=== PATIENT | male | born 1960 | race Caucasian/White ===

== ENCOUNTER 2017-08-21 05:19 | Observation (INO) | payer MEDICARE ==
[2017-08-21] MEDS ORDERED: SODIUM CHLORIDE 0.9% 500 ML IV STA (05:39)
[2017-08-21 05:55] LABS: Basophils # (A) 0.1 k/uL (0-0.2); Basophils % (A) 1 %; CH 30.5; CHCM 34.1; Eosinophils # (A) 0.3 k/uL (0-0.7); Eosinophils % (A) 3 %; HCT 45.2 % (39.0-53.0); HDW 2.74; HGB 15.2 gm/dL (13.0-17.5); Luc # (Auto) 0.23; Luc % (Auto) 2; Lymphocytes # (A) 4.5 k/uL (1.0-4.8); Lymphocytes % (A) 43 %; MCH 30.1 pg (25.0-35.0); MCHC 33.5 g/dL (31.0-37.0); Mean Platelet Volume 6.5; Monocytes # (A) 0.8 k/uL (0-1.0); Monocytes % (A) 7 %; Neutrophils # (A) 4.6 k/uL (1.3-7.7); Neutrophils % (A) 44 %; RBC 5.03 m/uL (4.30-5.90); RDW 13.6 % (11.5-15.5); WBC 10.6 k/uL (3.8-10.6); WBC (Perox) 10.31
[2017-08-21 06:15] LABS: ALT 28 U/L (21-72); AST 18 U/L (17-59); Alkaline Phosphatase 125 U/L (38-126); Anion Gap 12 mmol/L; Blood Urea Nitrogen 17 mg/dL (9-20); Calcium 9.3 mg/dL (8.4-10.2); Carbon Dioxide 22 mmol/L (22-30); Chloride 107 mmol/L (98-107); Glucose 158 mg/dL (74-99); Magnesium 2.1 mg/dL (1.6-2.3); Non-African American GFR(MDRD) >60 (>60 ml/min/1.73 sqM); Potassium 3.8 mmol/L (3.5-5.1); Sodium 141 mmol/L (137-145); Total Bilirubin 0.1 mg/dL (0.2-1.3); Total Protein 6.7 g/dL (6.3-8.2)
[2017-08-21 06:22] LABS: Creatine Kinase 33 U/L (55-170)
--- NOTE | 2017-08-21 06:26 | ED ---
General Adult HPI - General Chief complaint: Nausea/Vomiting/Diarrhea Stated complaint: chest pain Time Seen by Provider: 08/21/17 05:40 Source: patient Mode of arrival: ambulatory Limitations: no limitations - History of Present Illness Initial comments: This patient is a 56-year-old man who presents to be evaluated for a constellation of symptoms. Patient states that he was awakened from sleep perhaps an hour ago, with a feeling of palpitations, dizziness, sour brash. Onset/Timin -: hour(s) Location: abdomen Consistency: now resolved Improves with: none Worsens with: none Associated Symptoms: fever/chills, nausea/vomiting, shortness of breath, weakness - Related Data Allergies Allergy/AdvReac Type Severity Reaction Status Date / Time No Known Allergies Allergy Verified 08/21/17 05:28 Review of Systems ROS Statement: Those systems with pertinent positive or pertinent negative responses have been documented in the HPI. ROS Other: All systems not noted in ROS Statement are negative. Constitutional: Reports: chills. Denies: fever Respiratory: Reports: dyspnea. Denies: cough, wheezes Cardiovascular: Reports: palpitations Gastrointestinal: Reports: nausea. Denies: abdominal pain, vomiting Skin: Denies: rash Neurological: Denies: headache, weakness Psychiatric: Reports: anxiety Past Medical History Past Medical History: No Reported History History of Any Multi-Drug Resistant Organisms: MRSA Additional Past Surgical History / Comment(s): sleep apnea surgery Past Psychological History: Depression Smoking Status: Former smoker Past Alcohol Use History: None Reported Past Drug Use History: Marijuana General Exam Limitations: no limitations General appearance: alert, anxious, obese Head exam: Present: atraumatic Eye exam: Present: normal appearance. Absent: scleral icterus, conjunctival injection ENT exam: Present: mucous membranes dry Neck exam: Present: normal inspection Respiratory exam: Present: normal lung sounds bilaterally. Absent: respiratory distress, wheezes, rales, rhonchi, stridor Cardiovascular Exam: Present: regular rate (Rate is 88 at my exam), normal rhythm, normal heart sounds. Absent: systolic murmur, diastolic murmur, rubs, gallop GI/Abdominal exam: Present: soft. Absent: distended, tenderness, guarding, rebound, mass Extremities exam: Present: normal inspection, normal capillary refill. Absent: pedal edema, calf tenderness Back exam: Present: normal inspection. Absent: CVA tenderness (R), CVA tenderness (L) Neurological exam: Present: alert Skin exam: Present: warm, dry, intact, normal color. Absent: rash Course Vital Signs 08/21/17 08/21/17 08/21/17 05:23 07:10 09:08 Temperature 97.5 F L Pulse Rate 133 H 112 H Respiratory 18 22 18 Rate Blood Pressure 155/98 149/89 O2 Sat by Pulse 97 Oximetry 08/21/17 09:14 Temperature Pulse Rate 111 H Respiratory 20 Rate Blood Pressure 142/68 O2 Sat by Pulse 97 Oximetry EKG Findings - EKG Comments: EKG Findings:: Low voltage QRS complex - EKG Results: EKG: interpreted by ERMD, sinus rhythm (With PVC), normal axis, normal ST/T EKG shows: tachycardia (Rate approximately 117 bpm) Medical Decision Making - Lab Data Result diagrams: 08/21/17 05:30 08/21/17 05:30 Lab Results 08/21/17 08/21/17 08/21/17 Range/Units 05:30 05:30 05:30 WBC 10.6 (3.8-10.6) k/uL RBC 5.03 (4.30-5.90) m/uL Hgb 15.2 (13.0-17.5) gm/dL Hct 45.2 (39.0-53.0) % MCV 90.0 (80.0-100.0) fL MCH 30.1 (25.0-35.0) pg MCHC 33.5 (31.0-37.0) g/dL RDW 13.6 (11.5-15.5) % Plt Count 320 (150-450) k/uL Neutrophils % 44 % Lymphocytes % 43 % Monocytes % 7 % Eosinophils % 3 % Basophils % 1 % Neutrophils # 4.6 (1.3-7.7) k/uL Lymphocytes # 4.5 (1.0-4.8) k/uL Monocytes # 0.8 (0-1.0) k/uL Eosinophils # 0.3 (0-0.7) k/uL Basophils # 0.1 (0-0.2) k/uL PT (9.0-12.0) sec INR (<1.2) APTT (22.0-30.0) sec D-Dimer (<0.60) mg/L FEU Sodium 141 (137-145) mmol/L Potassium 3.8 (3.5-5.1) mmol/L Chloride 107 (98-107) mmol/L Carbon Dioxide 22 (22-30) mmol/L Anion Gap 12 mmol/L BUN 17 (9-20) mg/dL Creatinine 0.90 (0.66-1.25) mg/dL Est GFR (MDRD) Af Amer >60 (>60 ml/min/1.73 sqM) Est GFR (MDRD) Non-Af >60 (>60 ml/min/1.73 sqM) Glucose 158 H (74-99) mg/dL Calcium 9.3 (8.4-10.2) mg/dL Magnesium 2.1 (1.6-2.3) mg/dL Total Bilirubin 0.1 L (0.2-1.3) mg/dL AST 18 (17-59) U/L ALT 28 (21-72) U/L Alkaline Phosphatase 125 (38-126) U/L Total Creatine Kinase 33 L (55-170) U/L CK-MB (CK-2) <0.2 (0.0-2.4) ng/mL CK-MB (CK-2) Rel Index Troponin I <0.012 (0.000-0.034) ng/mL Total Protein 6.7 (6.3-8.2) g/dL Albumin 4.1 (3.5-5.0) g/dL TSH 13.700 H (0.465-4.680) mIU/L 08/21/17 Range/Units 05:30 WBC (3.8-10.6) k/uL RBC (4.30-5.90) m/uL Hgb (13.0-17.5) gm/dL Hct (39.0-53.0) % MCV (80.0-100.0) fL MCH (25.0-35.0) pg MCHC (31.0-37.0) g/dL RDW (11.5-15.5) % Plt Count (150-450) k/uL Neutrophils % % Lymphocytes % % Monocytes % % Eosinophils % % Basophils % % Neutrophils # (1.3-7.7) k/uL Lymphocytes # (1.0-4.8) k/uL Monocytes # (0-1.0) k/uL Eosinophils # (0-0.7) k/uL Basophils # (0-0.2) k/uL PT 9.8 (9.0-12.0) sec INR 1.0 (<1.2) APTT 23.5 (22.0-30.0) sec D-Dimer 0.27 (<0.60) mg/L FEU Sodium (137-145) mmol/L Potassium (3.5-5.1) mmol/L Chloride (98-107) mmol/L Carbon Dioxide (22-30) mmol/L Anion Gap mmol/L BUN (9-20) mg/dL Creatinine (0.66-1.25) mg/dL Est GFR (MDRD) Af Amer (>60 ml/min/1.73 sqM) Est GFR (MDRD) Non-Af (>60 ml/min/1.73 sqM) Glucose (74-99) mg/dL Calcium (8.4-10.2) mg/dL Magnesium (1.6-2.3) mg/dL Total Bilirubin (0.2-1.3) mg/dL AST (17-59) U/L ALT (21-72) U/L Alkaline Phosphatase (38-126) U/L Total Creatine Kinase (55-170) U/L CK-MB (CK-2) (0.0-2.4) ng/mL CK-MB (CK-2) Rel Index Troponin I (0.000-0.034) ng/mL Total Protein (6.3-8.2) g/dL Albumin (3.5-5.0) g/dL TSH (0.465-4.680) mIU/L Disposition Clinical Impression: Chest pain, Hypothyroid Disposition: ADMITTED IP TO THIS HOSP Condition: Fair Referrals: Juan Simms MD [Primary Care Provider] - 1-2 days
[2017-08-21 06:27] LABS: Partial Thromboplastin Time 23.5 sec (22.0-30.0); Prothrombin Time 9.8 sec (9.0-12.0)
[2017-08-21 06:35] LABS: Creatine Kinase MB <0.2 ng/mL (0.0-2.4); Troponin I <0.012 ng/mL (0.000-0.034)
--- NOTE | 2017-08-21 06:57 | XR ---
EXAM: XR Chest, 1 View CLINICAL HISTORY: Reason: dysrhythmia TECHNIQUE: Frontal view of the chest. COMPARISON: No relevant prior studies available. FINDINGS: Lungs: Wedge-shaped left ventricular border in a is nonspecific, may suggest prominent pericardial fat versus cyst. Right lungs clear Pleural space: Unremarkable. No pneumothorax. Mediastinum: Unremarkable. Bones/joints: See above. IMPRESSION: Wedge-shaped left ventricular border in a is nonspecific, may suggest prominent pericardial fat versus cyst. Airspace disease is less likely but cannot be entirely excluded.
[2017-08-21] MEDS ORDERED: NITROGLYCERIN SL TABS 0.4 MG TAB SUBLINGUAL STA (08:59)
[2017-08-21] MEDS ORDERED: LORazepam 2 MG/ML INJ IV STA (09:20)
[2017-08-21] MEDS ORDERED: NITROGLYCERIN SL TABS 0.4 MG TAB SUBLINGUAL PRN (09:47)
[2017-08-21 11:55] VITALS: BMI 38.5
[2017-08-21 12:01] LABS: Creatine Kinase 36 U/L (55-170)
[2017-08-21 12:13] LABS: Creatine Kinase MB 0.4 ng/mL (0.0-2.4); Troponin I <0.012 ng/mL (0.000-0.034)
--- NOTE | 2017-08-21 12:22 | P.HPIM ---
History of Present Illness H&P Date: 08/21/17 Chief Complaint: Palpitations and shortness of breath Nito is a 56-year-old white male well-known to me. He is to see in the office several days ago regarding anxiety and depression. He has known significant anxiety. He states that last night he woke up short of breath and with palpitations in his chest, and feeling diaphoretic. He said the episode lasted 15-20 minutes and then recurred. He came emergency room to be seen and evaluated for these symptoms. He is now resting comfortably on the observation floor. Initial tests are negative him with the exception of a TSH of 13.7, and a glucose of 158, which may have been fasting. Review of Systems All systems: negative Past Medical History Past Medical History: Chest Pain / Angina, GERD/Reflux, Sleep Apnea/CPAP/BIPAP, Thyroid Disorder Additional Past Medical History / Comment(s): cataract History of Any Multi-Drug Resistant Organisms: MRSA Date of last positivie culture/infection: unk MDRO Source:: butt Additional Past Surgical History / Comment(s): sleep apnea surgery Past Anesthesia/Blood Transfusion Reactions: No Reported Reaction Past Psychological History: Depression Smoking Status: Former smoker Past Alcohol Use History: None Reported Past Drug Use History: Marijuana - Past Family History Sister(s) Family Medical History: Cancer Additional Family Medical History / Comment(s): depression, breast CA Father Additional Family Medical History / Comment(s): blood clot Mother Family Medical History: Cancer Additional Family Medical History / Comment(s): pancreatic cancer Medications and Allergies Home Medications Medication Instructions Recorded Confirmed Type Escitalopram [Lexapro] 10 mg PO DAILY 08/21/17 08/21/17 History Allergies Allergy/AdvReac Type Severity Reaction Status Date / Time No Known Allergies Allergy Verified 08/21/17 10:23 Physical Exam Vitals: Vital Signs Temp Pulse Resp BP Pulse Ox 08/21/17 10:45 98.6 F 76 20 109/56 96 08/21/17 09:14 111 H 20 142/68 97 08/21/17 09:08 112 H 18 149/89 97 08/21/17 07:10 22 08/21/17 05:23 97.5 F L 133 H 18 155/98 Intake and Output 10/21/17 10/22/17 10/22/17 22:59 06:59 14:59 Other: Weight 114.759 kg 114.759 kg Patient Weight 08/22/17 06:59 Weight 114.759 kg GENERAL: Well-appearing, well-nourished and in no acute distress. HEAD: Atraumatic, normocephalic. EYES: Pupils equal round and reactive to light, extraocular movements intact, sclera anicteric, conjunctiva are normal. ENT:nares patent, oropharynx clear without exudates. Moist mucous membranes. NECK: Normal range of motion, supple without lymphadenopathy or JVD, no thyromegaly LUNGS: Breath sounds clear to auscultation bilaterally and equal. No wheezes rales or rhonchi. HEART: Regular rate and rhythm without murmurs, rubs or gallops.S1S2 Normal ABDOMEN: Soft, nontender, normoactive bowel sounds. No guarding, no rebound. No masses appreciated. EXTREMITIES: Normal range of motion, no pitting or edema. No clubbing or cyanosis. NEUROLOGICAL: Cranial nerves II through XII grossly intact. Normal speech, normal gait. PSYCH: Normal mood, normal affect. SKIN: Warm, Dry, normal turgor, no rashes or lesions noted. Results CBC & Chem 7: 08/21/17 05:30 08/21/17 05:30 Labs: Abnormal Lab Results - Last 24 Hours (Table) 08/21/17 08/21/17 08/21/17 Range/Units 05:30 05:30 11:20 Glucose 158 H (74-99) mg/dL Total Bilirubin 0.1 L (0.2-1.3) mg/dL Total Creatine Kinase 33 L 36 L (55-170) U/L TSH 13.700 H (0.465-4.680) mIU/L Thrombosis Risk Factor Assmnt - DVT/VTE Prophylaxis DVT/VTE Prophylaxis: Low risk, early ambulation encouraged - Choose All That Apply Any of the Below Risk Factors Present?: Yes Each Factor Represents 1 point: Age 41-60 years, Obesity (BMI >25) Thrombosis Risk Factor Assessment Total Risk Factor Score: 2 Thrombosis Risk Factor Assessment Level: Low Risk Assessment and Plan Plan: Chest pain, possibly unstable angina: We'll consult cardiology, most likely with Cardiolite stress test and a 2-D echo in the next 24 hours. Palpitations: We'll await further tests being worked up for possible angina. Abnormal thyroid function tests: I'll obtain a free T4, antiTPO Ab to confirm Brian's thyroiditis, plan on starting him on Synthroid 50 g daily this time. Elevated fasting glucose: We'll obtain hemoglobin A1c, Accu-Cheks before meals and at bedtime and Humalog scale Utilize anxiety disorder: We'll order Xanax 0.25 every 6 hours when necessary for symptoms. Depression: He can continue on his escitalopram, which was just restarted 2 days ago I'll await cardiology recommendations, his upcoming laboratory studies, and he' ll be reevaluated next 24 hours
[2017-08-21 17:11] LABS: Glucose,Whole Blood 108 mg/dL (75-99)
[2017-08-21] MEDS: ONDANSETRON 4 MG/2 ML VIAL IVP PRN (17:13)
[2017-08-21] MEDS: ALPRAZolam 0.25 MG TAB PO PRN (17:13)
[2017-08-21 18:32] LABS: Creatine Kinase MB 0.4 ng/mL (0.0-2.4); Troponin I <0.012 ng/mL (0.000-0.034)
[2017-08-21 18:34] LABS: Creatine Kinase 35 U/L (55-170)
[2017-08-21] MEDS: METOPROLOL TARTRATE 25 MG TAB PO SCH (20:20)
[2017-08-21 20:29] LABS: Glucose,Whole Blood 98 mg/dL (75-99)
[2017-08-21 22:02] LABS: Hemoglobin A1C 5.6 % (4.2-6.1)
[2017-08-22] MEDS: LEVOTHYROXINE 50 MCG TAB PO SCH (06:12)
[2017-08-22 07:00] LABS: Glucose,Whole Blood 100 mg/dL (75-99)
[2017-08-22 07:02] LABS: Basophils # (A) 0.1 k/uL (0-0.2); Basophils % (A) 1 %; CH 30.1; CHCM 33.1; Eosinophils # (A) 0.2 k/uL (0-0.7); Eosinophils % (A) 2 %; HCT 43.5 % (39.0-53.0); HDW 2.68; HGB 14.3 gm/dL (13.0-17.5); Luc # (Auto) 0.15; Luc % (Auto) 2; Lymphocytes # (A) 2.8 k/uL (1.0-4.8); Lymphocytes % (A) 35 %; MCH 30.1 pg (25.0-35.0); MCHC 32.9 g/dL (31.0-37.0); MCV 91.3 fL (80.0-100.0); Mean Platelet Volume 6.4; Monocytes # (A) 0.5 k/uL (0-1.0); Monocytes % (A) 7 %; Neutrophils # (A) 4.4 k/uL (1.3-7.7); Neutrophils % (A) 54 %; RBC 4.77 m/uL (4.30-5.90); RDW 13.7 % (11.5-15.5); WBC 8.2 k/uL (3.8-10.6); WBC (Perox) 8.16
[2017-08-22 07:41] LABS: Anion Gap 8 mmol/L; Blood Urea Nitrogen 13 mg/dL (9-20); Calcium 8.9 mg/dL (8.4-10.2); Carbon Dioxide 26 mmol/L (22-30); Chloride 107 mmol/L (98-107); Cholesterol 158 mg/dL (<200); Glucose 104 mg/dL (74-99); HDL Cholesterol 43 mg/dL (40-60); Non-African American GFR(MDRD) >60 (>60 ml/min/1.73 sqM); Potassium 4.3 mmol/L (3.5-5.1); Sodium 141 mmol/L (137-145)
[2017-08-22] MEDS: ASPIRIN 325 MG TAB PO SCH (08:52)
[2017-08-22] MEDS ORDERED: ESCITALOPRAM 10 MG TAB PO SCH (09:00)
--- NOTE | 2017-08-22 10:31 | P.CRDCN ---
History of Present Illness Consult date: 08/22/17 History of present illness: This is a 56-year-old pleasant male. Past medical history significant for depression, anxiety, sleep apnea and former smoker. Patient states yesterday morning he woke up and he felt as if someone had druggeed him. He states he felt all over generalized malaise and weakness. He felt foggy and was unable to articulate. We have been asked to see the patient for complaints of chest pain although the patient denies ever having any chest pain during this episode. He does however state that during this episode he started becoming very anxious and worked up and his heart started racing and he became short of breath. He states he has had similar type feelings in the past when he is in a stressful event. EKG upon arrival shows a sinus mechanism tachycardic 117 with poor R-wave progression and Q-waves in inferior leads. His most recent stress test with a Lexiscan in 2013 which was negative for reversible ischemia. He denies history of coronary artery disease and has never seen a manager field services for any reason. He states he quit smoking approximately 4 years ago but is still uses of the VapePen. TSH 13.7 medicine started on Synthroid 50 g. This is a new diagnosis. Cardiac enzymes negative x3. Review of Systems CONSTITUTIONAL: Denies fever. Denies chills. EYES: Denies blurred vision. Denies vision changes. Denies eye pain. EARS, NOSE, MOUTH & THROAT: Denies headache. Denies sore throat. Denies ear pain. CARDIOVASCULAR: Denies chest pain. Complains of shortness of breath, resolved. Denies orthopnea. Denies PND. Denies palpitations. RESPIRATORY: Denies cough. GASTROINTESTINAL: Denies abdominal pain. Denies diarrhea. Denies constipation. Denies nausea. Denies vomitng. MUSCULOSKELETAL: Denies myalgias. INTEGUMENTARY: Denies pruitis. Denies rash. NEUROLOGIC: Denies numbness. Denies tingling. Denies weakness. PSYCHIATRIC: Complains of anxiety and depression. Recently went back on Lexapro. ENDOCRINE: Denies fatigue. Denies weight change. Denies polydipsia. Denies polyurina. GENITOURINARY: Denies burning, hematuria or urgency with micturation. HEMATOLOGIC: Denies history of anemia. Denies bleeding. Past Medical History Past Medical History: Chest Pain / Angina, GERD/Reflux, Sleep Apnea/CPAP/BIPAP, Thyroid Disorder Additional Past Medical History / Comment(s): cataract History of Any Multi-Drug Resistant Organisms: MRSA Date of last positivie culture/infection: unk MDRO Source:: butt Additional Past Surgical History / Comment(s): sleep apnea surgery Past Anesthesia/Blood Transfusion Reactions: No Reported Reaction Past Psychological History: Depression Smoking Status: Former smoker Past Alcohol Use History: None Reported Past Drug Use History: Marijuana - Past Family History Sister(s) Family Medical History: Cancer Additional Family Medical History / Comment(s): depression, breast CA Father Additional Family Medical History / Comment(s): blood clot Mother Family Medical History: Cancer Additional Family Medical History / Comment(s): pancreatic cancer Medications and Allergies Home Medications Medication Instructions Recorded Confirmed Type Escitalopram [Lexapro] 10 mg PO DAILY 08/21/17 08/21/17 History Allergies Allergy/AdvReac Type Severity Reaction Status Date / Time No Known Allergies Allergy Verified 08/21/17 10:23 Physical Exam Vitals: Vital Signs Temp Pulse Pulse Resp BP BP Pulse Ox 08/22/17 07:42 97.7 F 59 L 18 103/58 99 08/22/17 03:48 97.9 F 58 L 18 114/62 98 08/22/17 03:36 18 08/21/17 23:48 98.7 F 64 18 119/72 96 08/21/17 23:43 18 08/21/17 20:00 98.3 F 78 18 133/75 96 08/21/17 16:00 97.5 F L 71 18 119/81 95 08/21/17 11:10 97.9 F 79 18 119/72 95 08/21/17 10:45 98.6 F 76 20 109/56 96 08/21/17 09:14 111 H 20 142/68 97 08/21/17 09:08 112 H 18 149/89 97 Intake and Output 08/21/17 08/22/17 08/22/17 22:59 06:59 14:59 Other: Voiding Method Toilet Toilet GENERAL: This is a 56-year-old male in no apparent distress at the time of my examination. Obese. HEENT: Head is atraumatic, normocephalic. Pupils are equal, round. Sclerae anicteric. Conjunctivae are clear. Mucous membranes of the mouth are moist. Neck is supple. There is no jugular venous distention. No carotid bruit is heard. LUNGS: Clear to auscultation no wheezes, rales or rhonchi. No chest wall tenderness is noted on palpation or with deep breathing. HEART: Regular rate and rhythm without murmurs, rubs or gallops. S1 and S2 heard. ABDOMEN: Soft, nontender. Bowel sounds are heard. No organomegaly noted. EXTREMITIES: 2+ peripheral pulses with no evidence of peripheral edema and no calf tenderness noted. NEUROLOGIC: Patient is awake, alert and oriented x3. Results 08/22/17 06:35 08/22/17 06:35 Cardiac Enzymes 08/21/17 08/21/17 Range/Units 11:20 17:37 CK-MB (CK-2) 0.4 0.4 (0.0-2.4) ng/mL Troponin I <0.012 <0.012 (0.000-0.034) ng/mL Lipids 08/22/17 Range/Units 06:35 Triglycerides 125 (<150) mg/dL Cholesterol 158 (<200) mg/dL HDL Cholesterol 43 (40-60) mg/dL CBC 08/22/17 Range/Units 06:35 WBC 8.2 (3.8-10.6) k/uL RBC 4.77 (4.30-5.90) m/uL Hgb 14.3 (13.0-17.5) gm/dL Hct 43.5 (39.0-53.0) % Plt Count 274 (150-450) k/uL Comprehensive Metabolic Panel 08/22/17 Range/Units 06:35 Sodium 141 (137-145) mmol/L Potassium 4.3 (3.5-5.1) mmol/L Chloride 107 (98-107) mmol/L Carbon Dioxide 26 (22-30) mmol/L BUN 13 (9-20) mg/dL Creatinine 0.95 (0.66-1.25) mg/dL Glucose 104 H (74-99) mg/dL Calcium 8.9 (8.4-10.2) mg/dL Current Medications Generic Name Dose Route Start Last Admin Trade Name Freq PRN Reason Stop Dose Admin Alprazolam 0.25 mg 08/21/17 16:42 08/21/17 17:13 Xanax PO 0.25 mg Q6H PRN Administration Anxiety Aspirin 325 mg 08/22/17 09:00 Aspirin PO DAILY REPLACED BY [facility] Escitalopram Oxalate 10 mg 08/22/17 09:00 Lexapro PO DAILY REPLACED BY [facility] Levothyroxine Sodium 50 mcg 08/22/17 06:30 08/22/17 06:12 Synthroid PO 50 mcg DAILY@0630 CAMILA Administration Metoprolol Tartrate 25 mg 08/21/17 21:00 08/21/17 20:20 Lopressor PO 25 mg BID CAMILA Administration Nitroglycerin 0.4 mg 08/21/17 09:47 Nitrostat SUBLINGUAL Q5M PRN Chest Pain Ondansetron HCl 4 mg 08/21/17 16:38 08/21/17 17:13 Zofran IVP 4 mg Q6HR PRN Administration Nausea And Vomiting Intake and Output 08/21/17 08/22/17 08/22/17 22:59 06:59 14:59 Other: Voiding Method Toilet Toilet 08/22/17 06:35 08/22/17 06:35 Assessment and Plan Assessment: ASSESSMENT 1. Shortness of breath and palpitations 2. History of anxiety and depression 3. Subclinical Hhpothyroidism, elevated TSH with normal T4 and thyroid peroxidase antibody. PLAN Obtain 2D echocardiogram and doppler to study to assess cardiac structure/ function. If this is normal he is stable for discharge home to follow up with Dr. Chavez in 2-4 weeks for an outpatient stress test. Thank you kindly for this consultation. Nurse Practitioner note has been reviewed, I agree with a documented findings and plan of care. Patient was seen and examined.
--- NOTE | 2017-08-22 10:55 | ECHOF ---
Referral Reason:SOB MEASUREMENTS -------- HEIGHT: 172.7 cm WEIGHT: 114.8 kg BP: RVIDd: 3.0 cm (< 3.3) IVSd: 1.2 cm (0.6 - 1.1) LVIDd: 5.4 cm (3.9 - 5.3) LVPWd: 1.1 cm (0.6 - 1.1) IVSs: 1.4 cm LVIDs: 5.4 cm LVPWs: 1.0 cm Ao Diam: 3.7 cm (2.0 - 3.7) AV Cusp: 2.2 cm (1.5 - 2.6) LA Diam: 3.4 cm (2.7 - 3.8) MV EXCURSION: 22.126 mm (> 18.000) MV EF SLOPE: 131 mm/s (70 - 150) EPSS: 0.2 cm MV E Jasper: 0.47 m/s MV DecT: 176 ms MV A Jasper: 0.57 m/s MV E/A Ratio: 0.81 FINDINGS -------- Sinus rhythm. This was a techncally difficult study with suboptimal views, , Definity utilized for enhancement of images. Pt. not compliant. The left ventricular size is normal. Left ventricular wall thickness is normal. Overall left ventricular systolic function is normal with, an EF between 55 - 60 %. The right ventricle is normal in size. The left atrial size is normal. The right atrial size is normal. 1.5MG OF DEFINITY UTLIZED: 2 OR MORE WALL SEGMENTS NOT VISUALIZED. The aortic valve is trileaflet, and appears structurally normal. No aortic stenosis or regurgitation. Mild mitral regurgitation is present. Mild tricuspid regurgitation present. There is no evidence of pulmonary hypertension. The right ventricular systolic pressure, as measured by Doppler, is {RVSP}. There is no pulmonic regurgitation present. The aortic root size is normal. There is no pericardial effusion. CONCLUSIONS -------- 1. This was a techncally difficult study with suboptimal views, , Definity utilized for enhancement of images. 2. There is no evidence of pulmonary hypertension. 3. The right ventricular systolic pressure, as measured by Doppler, is {RVSP}. 4. There is no pulmonic regurgitation present. 5. The aortic root size is normal. 6. There is no pericardial effusion. 7. Pt. not compliant. 8. The left ventricular size is normal. 9. Left ventricular wall thickness is normal. 10. Overall left ventricular systolic function is normal with, an EF between 55 - 60 %. 11. 1.5MG OF DEFINITY UTLIZED: 2 OR MORE WALL SEGMENTS NOT VISUALIZED. 12. The aortic valve is trileaflet, and appears structurally normal. No aortic stenosis or regurgitation. 13. Mild mitral regurgitation is present. 14. Mild tricuspid regurgitation present. INDEPENDENT VIDEO PRODUCER: Vita Goldberg RDCS
[2017-08-22 11:57] LABS: Glucose,Whole Blood 138 mg/dL (75-99)
[2017-08-22] MEDS: ONDANSETRON 4 MG/2 ML VIAL IVP PRN (12:17)
[2017-08-22] MEDS ORDERED: methylPREDNISolone SOD SUCCI 125 MG/2 ML VIAL IM ONE (12:53)
[2017-08-22] MEDS ORDERED: RX INFO: IV CONTRAST WAS GIVEN 1 EACH MISC MISCELLANE PRN (12:55)
--- NOTE | 2017-08-22 14:14 | CT ---
EXAMINATION TYPE: CT brain wo/w con DATE OF EXAM: 08/22/2017 COMPARISON: NONE HISTORY: Patient complains of nausea, vomiting, lightheadedness, and foggy feeling post taking new me dication (lexapro). CT DLP: 1718.4 mGycm Automated exposure control for dose reduction was used. CONTRAST: CT scan of the head is performed without and with IV Contrast, patient injected with 100 mL of Omnipa que 300. FINDINGS: Noncontrast images show no acute intracranial hemorrhage or midline shift. Ventricles and sulci are w ithin normal limits in size. Postcontrast images show no suspicious enhancing intraparenchymal mass. There is opacification in the bilateral ethmoid sinuses. There is completely opacified right maxillar y sinus with high-density anteriorly and low dense material posteriorly. Mucous retention cysts or po lyps in the left maxillary sinus anteriorly and posteriorly are identified. There is mild mucosal thi ckening in small caliber right frontal sinus. There is mild mucosal thickening is small caliber left frontal sinus. IMPRESSION: Paranasal sinus disease as detailed above.
--- NOTE | 2017-08-22 15:15 | P.PN ---
Subjective Progress Note Date: 08/22/17 08/22/2017 1230: Patient seen and examined on rounds with Dr. Klein. Patient states he is not having chest pain and never really had chest pain throughout hospitalization. He states he is dizzy, lightheaded, nauseous, and is throwing up. Clear liquid diet has been ordered. He was seen by cardiology this morning. Echocardiogram was ordered which shows normal EF of 55-60%, mild mitral regurgitation, and mild tricuspid regurgitation. The patient has also been complaining of a severe headache which he states he never really gets headaches. Dr. Klein ordered 100mg solu-medral IM and CT of the brain. 1400: Nursing called and stated patient just remembered that he was started on Lexapro tuesday after seeing his PCP in the office on Tuesday for depression. He started the medication Tuesday and that is when his symptoms began. Also, the patient is experiencing paranoia and anger outbursts per the . Spoke with Dr. Klein who stated the patient can be started on Ativan 0.5mg PO TID and discontinue the lexapro. If the patient feels better this afternoon, he may go home and follow up outpatient, otherwise he can be discharged tomorrow if he is feeling well. Objective - Vital Signs Vital signs: Vital Signs Temp 97.8 F 08/22/17 11:57 Pulse 60 08/22/17 11:57 Resp 17 08/22/17 11:57 BP 111/67 08/22/17 11:57 Pulse Ox 97 08/22/17 11:57 Intake & Output 08/21/17 08/22/17 08/22/17 18:59 06:59 18:59 Weight 114.8 kg Other: Voiding Method Toilet Toilet Toilet - Exam GENERAL: Alert and oriented. Appears in no acute distress. Pleasant. RESPIRATORY: Lungs clear bilaterally. No use of accessory muscles. Patient maintaining oxygen saturation greater than 92%. CARDIOVASCULAR: S1 and S2 noted. No murmurs auscultated. No JVD noted. EXTREMITIES: No edema noted. Palpable pedal pulses +2. ABDOMEN: No distention noted. Abdomen soft and round. Normal active bowel sounds auscultated 4 quadrants. No pain or tenderness noted upon palpation. - Labs CBC & Chem 7: 08/22/17 06:35 08/22/17 06:35 Labs: Abnormal Lab Results - Last 24 Hours (Table) 08/21/17 08/21/17 08/22/17 Range/Units 16:59 17:37 06:35 Glucose 104 H (74-99) mg/dL POC Glucose (mg/dL) 108 H (75-99) mg/dL Total Creatine Kinase 35 L (55-170) U/L 08/22/17 08/22/17 Range/Units 06:48 11:36 Glucose (74-99) mg/dL POC Glucose (mg/dL) 100 H 138 H (75-99) mg/dL Total Creatine Kinase (55-170) U/L Assessment and Plan Assessment: ASSESSMENT: -Nausea and vomiting, possibly due to initiation of lexapro, possible serotonin syndrome -Palpitation and tachycardia -Headache, CT scan negative for acute process -Depression, started on Lexapro Tuesday with his first dose Tuesday -Anxiety -Subclinical hypothyroidism, elevated TSH with normal free T4 PLAN: -Cardiology on consult, appreciate recommendations and input -Stress test likely outpatient -Lopressor 25mg BID for tachycardia -Initiate ativan 0.5mg PO TID -Discontinue Lexapro -100mg solumedral and CT of the brain -Monitor labs -GI prophylaxis: protonix 40mg po daily -DVT prophylaxis: heparin 5000 units subcu every 12 hours -Monitor vital signs and address as appropriate -Per Dr. Klein, patient likely has serotonin syndrome and patient may be discharged home tonight if he feels okay, otherwise patient can wait and can be discharged home tomorrow The above impression and plan of care have been discussed and directed by signing physician. Meri Acevedo, nurse practitioner, acting as scribe for signing physician.
[2017-08-22] MEDS: METOPROLOL TARTRATE 25 MG TAB PO SCH ×2 (16:08→20:09)
[2017-08-22] MEDS: LORazepam 0.5 MG TAB PO SCH ×2 (16:09→20:09)
[2017-08-22 16:13] VITALS: RESP 18
[2017-08-22 17:04] LABS: Glucose,Whole Blood 122 mg/dL (75-99)
[2017-08-22] MEDS: HEPARIN SODIUM,PORCINE 5,000 UNIT/ML 1 ML VIAL SQ SCH (20:09)
[2017-08-22 20:52] LABS: Glucose,Whole Blood 146 mg/dL (75-99)
[2017-08-23] MEDS ORDERED: ACETAMINOPHEN TAB 325 MG TAB PO PRN (00:14)
[2017-08-23] MEDS: ONDANSETRON 4 MG/2 ML VIAL IVP PRN (03:18)
[2017-08-23] MEDS: LEVOTHYROXINE 50 MCG TAB PO SCH (04:15)
[2017-08-23] MEDS: ALPRAZolam 0.25 MG TAB PO PRN (04:15)
[2017-08-23 06:59] LABS: Glucose,Whole Blood 107 mg/dL (75-99)
[2017-08-23] MEDS ORDERED: PANTOPRAZOLE 40 MG TABLET PO SCH (07:30)
[2017-08-23] MEDS: ASPIRIN 325 MG TAB PO SCH (08:17)
[2017-08-23] MEDS: LORazepam 0.5 MG TAB PO SCH (08:17)
[2017-08-23] MEDS: HEPARIN SODIUM,PORCINE 5,000 UNIT/ML 1 ML VIAL SQ SCH (08:17)
[2017-08-23] MEDS: METOPROLOL TARTRATE 25 MG TAB PO SCH (08:18)
[2017-08-23 08:27] VITALS: BP 105/59; PULSE 73; TEMP 98
--- NOTE | 2017-08-23 14:03 | P.DS ---
Providers Date of admission: 08/21/17 09:47 Expected date of discharge: 08/23/17 Attending physician: Juan Simms Consults: 08/22/17 19:51 Consult Physician Routine Consulting Provider: Susan Aaron Consult Reason/Comments: paranoia, depression, anger, labile moods Do you want consulting provider notified?: Yes 08/23/17 07:34 Consult Physician Routine Consulting Provider: Lester Mckenzie Consult Reason/Comments: paranoia, depression, anger, labile moods Do you want consulting provider notified?: Yes Primary care physician: Juan [facility] Course: Nito is a 56-year-old white male who presented to the ER with shortness of breath and palpitations. He said the episode lasted 15-20 minutes and then recurred. He came emergency room to be seen and evaluated for these symptoms. Initial tests are negative with the exception of a TSH of 13.7, and a glucose of 158. 08/22/2017 Patient states he is not having chest pain and never really had chest pain throughout hospitalization. He states he is dizzy, lightheaded, nauseous, and is throwing up. Clear liquid diet has been ordered. He was seen by cardiology this morning. Echocardiogram was ordered which shows normal EF of 55-60%, mild mitral regurgitation, and mild tricuspid regurgitation. The patient has also been complaining of a severe headache which he states he never really gets headaches. Dr. Klein ordered 100mg solu-medral IM and CT of the brain. Nursing called and stated patient just remembered that he was started on Lexapro tuesday after seeing his PCP in the office on Tuesday for depression. He started the medication Tuesday and that is when his symptoms began. Also, the patient is experiencing paranoia and anger outbursts per the . Spoke with Dr. Klein who stated the patient can be started on Ativan 0.5mg PO TID and discontinue the lexapro. If the patient feels better this afternoon, he may go home and follow up outpatient, otherwise he can be discharged tomorrow if he is feeling well. 08/23/2017 Patient has no further episodes of nausea and vomiting. A consult was placed to psych. The patient does not want to be admitted to inpatient psych unit, but he is agreeable to outpatient psych treatment. It was recommended that patient complete intake with [facility]. Apparently, when the patient called, there was some insurance issues and they were unable to help the patient. The patients stated she will follow up outpatient in getting her outpatient care. The patient was given a prescription for Ativan, which Dr Klein explained to the patient is to be a short term medication only. The patient is deemed stable for discharge per Dr. Klein Patient Condition at Discharge: Fair Plan - Discharge Summary Discharge Rx Participant: No New Discharge Prescriptions: New Metoprolol Tartrate [Lopressor] 25 mg PO BID #60 tab Levothyroxine Sodium [Synthroid] 50 mcg PO DAILY@0630 #30 tab LORazepam [Ativan] 0.5 mg PO TID #45 tab Discontinued Escitalopram [Lexapro] 10 mg PO DAILY Discharge Medication List LORazepam [Ativan] 0.5 mg PO TID #45 tab 08/22/17 [Rx] Levothyroxine Sodium [Synthroid] 50 mcg PO DAILY@0630 #30 tab 08/22/17 [Rx] Metoprolol Tartrate [Lopressor] 25 mg PO BID #60 tab 08/22/17 [Rx] Follow up Appointment(s)/Referral(s): Norman Chavez MD [STAFF PHYSICIAN] - 4 Weeks (office will call patient with appointment date and time) Juan Simms MD [Primary Care Provider] - 1-2 days Patient Instructions/Handouts: Chest Pain (GEN) Care Plan Goals (MU): [phone] Discharge Disposition: HOME SELF-CARE
== END 2017-08-23 13:50 | disposition home or self-care (01) ==
LOC: EC 05:19 → 3OBS 09:47
PROVIDERS: ADMIT Family Medicine; ATTEND Family Medicine
DX: R11.2 Nausea with vomiting, unspecified (principal); R00.2 Palpitations; R42 Dizziness and giddiness; I08.1 Rheumatic disorders of both mitral and tricuspid valves; R51 Headache; F32.9 Major depressive disorder, single episode, unspecified; R19.7 Diarrhea, unspecified; G47.30 Sleep apnea, unspecified; E03.9 Hypothyroidism, unspecified; F41.9 Anxiety disorder, unspecified; E66.9 Obesity, unspecified; R73.01 Impaired fasting glucose; R94.31 Abnormal electrocardiogram [ECG] [EKG]; K21.9 Gastro-esophageal reflux disease without esophagitis; F22 Delusional disorders; Z68.38 Body mass index [BMI] 38.0-38.9, adult; Z87.891 Personal history of nicotine dependence; Z86.14 Personal history of Methicillin resistant Staphylococcus aureus infection; Z79.899 Other long term (current) drug therapy; Z99.89 Dependence on other enabling machines and devices
CPT/HCPCS: 93005 ×2; 96372 ×2; 96375; 96376 ×2; 96374; 99285; 36415; 85379; 84439; 80061; 80053; 80048; 83036; 82550; 82553; 83735; 84443; 84484; 85025 ×2; 85610; 85730; 86376; 87502; 71010; 70470; G0378 ×3; C8929; J2060; J1644 ×2; J2930; J2405 ×3; Q9957; Q9967; 93306

== ENCOUNTER 2017-10-17 00:48 | Emergency (ER) | payer MEDICARE ==
[2017-10-17 01:00] VITALS: TEMP 98.2
--- NOTE | 2017-10-17 01:20 | ED ---
Dizziness HPI - General Chief Complaint: Dizziness Stated Complaint: Vomiting/Nausea Time Seen by Provider: 10/17/17 01:04 Source: patient Mode of arrival: ambulatory Limitations: no limitations - History of Present Illness Initial Comments: This patient is a 57-year-old man who presents with a constellation of symptoms that are been occurring over the past 2-3 days which includes feeling lightheaded, having some nausea, and feeling like he is very "foggy." The patient states that he was having these same type of symptoms approximately 2 months ago and he was admitted in the hospital where he had a number of tests and was diagnosed with hypothyroidism. He states that he is taking medication for that currently but the symptoms have been recurring over the past 2-3 days. MD Complaint: lightheadedness Onset/Timin -: days(s) Description: lightheadedness History of Same: Yes Severity: moderate Improves With: nothing Worsens With: nothing - Related Data Previous Rx's Medication Instructions Recorded LORazepam [Ativan] 0.5 mg PO TID #45 tab 08/22/17 Levothyroxine Sodium [Synthroid] 50 mcg PO DAILY@0630 #30 tab 08/22/17 Metoprolol Tartrate [Lopressor] 25 mg PO BID #60 tab 08/22/17 Levothyroxine Sodium [Synthroid] 75 mcg PO DAILY #20 tab 10/17/17 Allergies Allergy/AdvReac Type Severity Reaction Status Date / Time No Known Allergies Allergy Verified 10/17/17 00:53 Review of Systems ROS Statement: Those systems with pertinent positive or pertinent negative responses have been documented in the HPI. ROS Other: All systems not noted in ROS Statement are negative. Constitutional: Denies: fever, chills, weakness Respiratory: Denies: cough, dyspnea, wheezes Cardiovascular: Denies: chest pain, palpitations, edema Endocrine: Reports: fatigue Gastrointestinal: Reports: nausea. Denies: abdominal pain, vomiting, diarrhea, constipation Genitourinary: Denies: dysuria Skin: Denies: rash Neurological: Denies: headache, weakness, numbness, paresthesias Psychiatric: Reports: anxiety Past Medical History Past Medical History: Chest Pain / Angina, GERD/Reflux, Sleep Apnea/CPAP/BIPAP, Thyroid Disorder Additional Past Medical History / Comment(s): cataract History of Any Multi-Drug Resistant Organisms: MRSA Date of last positivie culture/infection: unk MDRO Source:: butt Additional Past Surgical History / Comment(s): sleep apnea surgery Past Anesthesia/Blood Transfusion Reactions: No Reported Reaction Past Psychological History: Depression Smoking Status: Former smoker Past Alcohol Use History: None Reported Past Drug Use History: Marijuana - Past Family History Sister(s) Family Medical History: Cancer Additional Family Medical History / Comment(s): depression, breast CA Father Additional Family Medical History / Comment(s): blood clot Mother Family Medical History: Cancer Additional Family Medical History / Comment(s): pancreatic cancer General Exam Limitations: no limitations General appearance: alert, in no apparent distress, anxious Head exam: Present: atraumatic, normocephalic Eye exam: Present: normal appearance, PERRL, EOMI. Absent: scleral icterus, conjunctival injection ENT exam: Present: normal oropharynx Respiratory exam: Present: normal lung sounds bilaterally. Absent: respiratory distress, wheezes, rales, rhonchi, stridor Cardiovascular Exam: Present: regular rate, normal rhythm, normal heart sounds. Absent: systolic murmur, diastolic murmur, rubs, gallop GI/Abdominal exam: Present: soft. Absent: distended, tenderness, guarding, rebound, rigid Extremities exam: Present: normal inspection, normal capillary refill. Absent: pedal edema, calf tenderness Neurological exam: Present: alert Psychiatric exam: Present: anxious Skin exam: Present: warm, dry, intact, normal color. Absent: rash Course Vital Signs 10/17/17 10/17/17 00:53 04:00 Temperature 98.2 F Pulse Rate 98 85 Respiratory 17 18 Rate Blood Pressure 151/85 144/74 O2 Sat by Pulse 97 96 Oximetry EKG Findings - EKG Results: EKG: interpreted by ERMD, sinus rhythm (Rate approximately 86 bpm), normal QRS, normal ST/T - Blocks, Cheney, Hypertrophy, ST Abn: QRS axis and voltage: left axis deviation (-30 to -90) Medical Decision Making - Lab Data Result diagrams: 10/17/17 01:51 10/17/17 01:51 Lab Results 10/17/17 10/17/17 10/17/17 Range/Units 01:51 01:51 01:51 WBC 8.6 (3.8-10.6) k/uL RBC 5.34 (4.30-5.90) m/uL Hgb 15.5 (13.0-17.5) gm/dL Hct 49.4 (39.0-53.0) % MCV 92.5 (80.0-100.0) fL MCH 29.1 (25.0-35.0) pg MCHC 31.4 (31.0-37.0) g/dL RDW 15.6 H (11.5-15.5) % Plt Count 316 (150-450) k/uL Neutrophils % 62 % Lymphocytes % 27 % Monocytes % 7 % Eosinophils % 3 % Basophils % 1 % Neutrophils # 5.3 (1.3-7.7) k/uL Lymphocytes # 2.3 (1.0-4.8) k/uL Monocytes # 0.6 (0-1.0) k/uL Eosinophils # 0.2 (0-0.7) k/uL Basophils # 0.1 (0-0.2) k/uL Sodium 143 (137-145) mmol/L Potassium 4.4 (3.5-5.1) mmol/L Chloride 105 (98-107) mmol/L Carbon Dioxide 26 (22-30) mmol/L Anion Gap 12 mmol/L BUN 19 (9-20) mg/dL Creatinine 0.90 (0.66-1.25) mg/dL Est GFR (MDRD) Af Amer >60 (>60 ml/min/1.73 sqM) Est GFR (MDRD) Non-Af >60 (>60 ml/min/1.73 sqM) Glucose 130 H (74-99) mg/dL Calcium 10.6 H (8.4-10.2) mg/dL Total Bilirubin 0.4 (0.2-1.3) mg/dL AST 28 (17-59) U/L ALT 47 (21-72) U/L Alkaline Phosphatase 94 (38-126) U/L Troponin I <0.012 (0.000-0.034) ng/mL Total Protein 7.2 (6.3-8.2) g/dL Albumin 4.5 (3.5-5.0) g/dL TSH 6.290 H (0.465-4.680) mIU/L Free T4 1.38 (0.78-2.19) ng/dL Urine Color Urine Appearance (Clear) Urine pH (5.0-8.0) Ur Specific Napoleon (1.001-1.035) Urine Protein (Negative) Urine Glucose (UA) (Negative) Urine Ketones (Negative) Urine Blood (Negative) Urine Nitrite (Negative) Urine Bilirubin (Negative) Urine Urobilinogen (<2.0) mg/dL Ur Leukocyte Esterase (Negative) 10/17/17 Range/Units 02:15 WBC (3.8-10.6) k/uL RBC (4.30-5.90) m/uL Hgb (13.0-17.5) gm/dL Hct (39.0-53.0) % MCV (80.0-100.0) fL MCH (25.0-35.0) pg MCHC (31.0-37.0) g/dL RDW (11.5-15.5) % Plt Count (150-450) k/uL Neutrophils % % Lymphocytes % % Monocytes % % Eosinophils % % Basophils % % Neutrophils # (1.3-7.7) k/uL Lymphocytes # (1.0-4.8) k/uL Monocytes # (0-1.0) k/uL Eosinophils # (0-0.7) k/uL Basophils # (0-0.2) k/uL Sodium (137-145) mmol/L Potassium (3.5-5.1) mmol/L Chloride (98-107) mmol/L Carbon Dioxide (22-30) mmol/L Anion Gap mmol/L BUN (9-20) mg/dL Creatinine (0.66-1.25) mg/dL Est GFR (MDRD) Af Amer (>60 ml/min/1.73 sqM) Est GFR (MDRD) Non-Af (>60 ml/min/1.73 sqM) Glucose (74-99) mg/dL Calcium (8.4-10.2) mg/dL Total Bilirubin (0.2-1.3) mg/dL AST (17-59) U/L ALT (21-72) U/L Alkaline Phosphatase (38-126) U/L Troponin I (0.000-0.034) ng/mL Total Protein (6.3-8.2) g/dL Albumin (3.5-5.0) g/dL TSH (0.465-4.680) mIU/L Free T4 (0.78-2.19) ng/dL Urine Color Yellow Urine Appearance Clear (Clear) Urine pH 5.0 (5.0-8.0) Ur Specific Napoleon 1.019 (1.001-1.035) Urine Protein Negative (Negative) Urine Glucose (UA) Negative (Negative) Urine Ketones Negative (Negative) Urine Blood Negative (Negative) Urine Nitrite Negative (Negative) Urine Bilirubin Negative (Negative) Urine Urobilinogen <2.0 (<2.0) mg/dL Ur Leukocyte Esterase Negative (Negative) Disposition Clinical Impression: Hypothyroid, Anxiety Disposition: HOME SELF-CARE Condition: Fair Instructions: Hypothyroidism (ED) Prescriptions: Levothyroxine Sodium [Synthroid] 75 mcg PO DAILY #20 tab Referrals: Juan Simms MD [Primary Care Provider] - 1-2 days
[2017-10-17 02:18] LABS: Basophils # (A) 0.1 k/uL (0-0.2); Basophils % (A) 1 %; CH 30.4; CHCM 33.1; Eosinophils # (A) 0.2 k/uL (0-0.7); Eosinophils % (A) 3 %; HCT 49.4 % (39.0-53.0); HDW 2.53; HGB 15.5 gm/dL (13.0-17.5); Luc # (Auto) 0.08; Luc % (Auto) 1; Lymphocytes # (A) 2.3 k/uL (1.0-4.8); Lymphocytes % (A) 27 %; MCH 29.1 pg (25.0-35.0); MCHC 31.4 g/dL (31.0-37.0); MCV 92.5 fL (80.0-100.0); Mean Platelet Volume 7.1; Monocytes # (A) 0.6 k/uL (0-1.0); Monocytes % (A) 7 %; Neutrophils # (A) 5.3 k/uL (1.3-7.7); Neutrophils % (A) 62 %; RBC 5.34 m/uL (4.30-5.90); RDW 15.6 % (11.5-15.5); WBC 8.6 k/uL (3.8-10.6); WBC (Perox) 8.93
[2017-10-17 02:25] LABS: ALT 47 U/L (21-72); AST 28 U/L (17-59); Alkaline Phosphatase 94 U/L (38-126); Anion Gap 12 mmol/L; Blood Urea Nitrogen 19 mg/dL (9-20); Calcium 10.6 mg/dL (8.4-10.2); Carbon Dioxide 26 mmol/L (22-30); Chloride 105 mmol/L (98-107); Glucose 130 mg/dL (74-99); Non-African American GFR(MDRD) >60 (>60 ml/min/1.73 sqM); Potassium 4.4 mmol/L (3.5-5.1); Sodium 143 mmol/L (137-145); Total Bilirubin 0.4 mg/dL (0.2-1.3); Total Protein 7.2 g/dL (6.3-8.2)
[2017-10-17 02:31] LABS: Appearance,Urine Clear (Clear); Bilirubin,Urine Negative (Negative); Glucose,Urine (UA) Negative (Negative); Ketones,Urine Negative (Negative); Leukocyte Esterase,Urine Negative (Negative); Nitrite,Urine Negative (Negative); Protein,Urine Negative (Negative); Specific Gravity,Urine 1.019 (1.001-1.035); UA Billing (MACRO vs. MICRO) CHEM; Urobilinogen,Urine <2.0 mg/dL (<2.0)
--- NOTE | 2017-10-17 02:46 | XR ---
EXAM: XR Chest, 1 View CLINICAL HISTORY: Reason: lightheaded TECHNIQUE: Frontal view of the chest. COMPARISON: Comparison with 08/21/17 chest radiography FINDINGS: Lungs: Unremarkable. No consolidation. Pleural space: Unremarkable. No pneumothorax. Heart: Unremarkable. No cardiomegaly. Mediastinum: Unremarkable. Bones/joints: Unremarkable. IMPRESSION: Normal chest x-ray.
[2017-10-17 04:04] VITALS: BP 144/74; PULSE 85; RESP 18
== END 2017-10-17 04:49 | disposition home or self-care (01) ==
LOC: EC 00:48
DX: E03.9 Hypothyroidism, unspecified (principal); F41.9 Anxiety disorder, unspecified; R42 Dizziness and giddiness; R11.0 Nausea; Z86.14 Personal history of Methicillin resistant Staphylococcus aureus infection; Z87.891 Personal history of nicotine dependence
CPT/HCPCS: 36415; 71010; 80053; 81003; 84439; 84443; 84484; 85025; 93005; 99284

== ENCOUNTER → 2017-11-21 | Outpatient (CLI) | payer MEDICARE, OTHER ==
--- NOTE | 2017-11-21 10:40 | ECHOF ---
Referral Reason:R00.2 Palipitations,R07.1 Chest pain on breathing MEASUREMENTS -------- HEIGHT: 172.7 cm WEIGHT: 103.4 kg BP: RVIDd: 3.6 cm (< 3.3) IVSd: 1.2 cm (0.6 - 1.1) LVIDd: 4.3 cm (3.9 - 5.3) LVPWd: 1.1 cm (0.6 - 1.1) IVSs: 1.3 cm LVIDs: 4.0 cm LVPWs: 0.9 cm Ao Diam: 3.9 cm (2.0 - 3.7) AV Cusp: 1.9 cm (1.5 - 2.6) LA Diam: 3.4 cm (2.7 - 3.8) MV EXCURSION: 17.701 mm (> 18.000) MV EF SLOPE: 92 mm/s (70 - 150) EPSS: 0.8 cm MV E Jasper: 0.44 m/s MV DecT: 182 ms MV A Jasper: 0.68 m/s MV E/A Ratio: 0.65 RAP: 5.00 mmHg RVSP: 10.57 mmHg FINDINGS -------- Sinus rhythm. The left ventricular size is normal. There is mild concentric left ventricular hypertrophy. Overa ll left ventricular systolic function is low-normal with, an EF between 50 - 55 %. The right ventricle is normal in size. The left atrial size is normal. The right atrial size is normal. .5 ml of Lumason was utilized for enhancement of images. There is mild aortic valve sclerosis. There is no evidence of aortic regurgitation. Mild mitral annular calcification present. Mild mitral regurgitation is present. Mild tricuspid regurgitation present. There is no evidence of pulmonary hypertension. The right v entricular systolic pressure, as measured by Doppler, is 10.57mmHg. There is no pulmonic regurgitation present. The aortic root size is normal. There is no pericardial effusion. CONCLUSIONS -------- 1. The left ventricular size is normal. 2. There is mild concentric left ventricular hypertrophy. 3. Overall left ventricular systolic function is low-normal with, an EF between 50 - 55 %. 4. xx ml of Lumason was utilized for enhancement of images. 5. There is mild aortic valve sclerosis. 6. Mild mitral annular calcification present. 7. Mild mitral regurgitation is present. 8. Mild tricuspid regurgitation present. 9. There is no evidence of pulmonary hypertension. 10. The right ventricular systolic pressure, as measured by Doppler, is 10.57mmHg. 11. There is no pulmonic regurgitation present. 12. The aortic root size is normal. 13. There is no pericardial effusion. BACON STRINGER: Vita Goldberg RDCS
--- NOTE | 2017-11-21 11:22 | NM ---
EXAMINATION TYPE: NM stress cardiolite complete DATE OF EXAM: 11/21/2017 COMPARISON: NONE HISTORY: Precordial chest pain and abnormal EKG TECHNIQUE: After the intravenous administration of 11.39 mCi Tc 99m Sestamibi - Rest images obtained 45 minutes post injection. The patient exercised using a ANTIONETTE protocol and 1 minute prior to peak exercise was injected with 30 mCi Tc 99m Sestamibi - Stress images obtained 55 minutes post injectio n. FINDINGS: Targeted heart rate was achieved during performance of the study. Review of stress and rest SPECT yuli ges decreased perfusion on stress images involving the inferior wall, inferolateral and inferoseptal regions. Stress-induced ischemia is not excluded. Gated analysis shows normal wall motion with an est imated left ventricular ejection fraction of 59 %. IMPRESSION: Stress-induced ischemia is not excluded as noted above.
--- NOTE | 2017-11-21 11:48 | EST ---
EXERCISE STRESS DATE OF SERVICE: 11/21/2017 AGE: 57 SEX: Male HT: 68" WT: 228 pounds PROTOCOL: Cardiolite Stanford STAGE: II DURATION OF EXERCISE: 8:30 HEART RATE REST: 77 BLOOD PRESSURE REST: 114/74 MAXIMUM HEART RATE ACHIEVED: 148 MAXIMUM BLOOD PRESSURE: 149/97 85% MPHR: 140 100% MPHR: 165 METS: 10.3 INDICATIONS: Chest pain. CLINICAL INFORMATION: STRESS DATA: Pretesting physical examination showed a heart rate of 77, pressure is 114/74 mmHg. Baseline EKG showed sinus rhythm. The patient exercised on the treadmill according to Stanford protocol for a total of 8 minutes and 30 seconds and achieved 10.3 METs. Max heart rate was 148, which is about 87% of maximum predicted heart rate. Maximum blood pressure was 149/97 mmHg. Clinically the patient did not have any symptoms of chest pain or discomfort during the testing or in the recovery. The EKG did not show any significant ST or T-wave abnormalities consistent with ischemia. CONCLUSION: 1. Excellent exercise capacity. 2. Normal EKG in response to exercise. 3. Please follow up on the Cardiolite portion on separate report. MMODL / IJN: [id number] /
== END | disposition home or self-care (01) ==
LOC: RADNMMAIN 08:09
PROVIDERS: ATTEND Family Medicine
DX: I08.3 Combined rheumatic disorders of mitral, aortic and tricuspid valves (principal)
CPT/HCPCS: 93017; 78452; C8929; A9500; Q9950; 93306

== ENCOUNTER → 2017-12-22 | Outpatient (CLI) | payer MEDICARE, OTHER ==
[2017-12-22 14:58] LABS: Basophils % (A) 1 %; Eosinophils # (A) 0.1 k/uL (0-0.7); Eosinophils % (A) 2 %; HCT 45.5 % (39.0-53.0); HGB 14.3 gm/dL (13.0-17.5); Lymphocytes % (A) 28 %; MCH 29.7 pg (25.0-35.0); MCHC 31.4 g/dL (31.0-37.0); MCV 94.7 fL (80.0-100.0); Mean Platelet Volume 6.6; Monocytes # (A) 0.5 k/uL (0-1.0); Monocytes % (A) 7 %; Neutrophils # (A) 4.5 k/uL (1.3-7.7); Neutrophils % (A) 62 %; Platelet Count 281 k/uL (150-450); RDW 13.7 % (11.5-15.5); WBC 7.2 k/uL (3.8-10.6)
[2017-12-22 15:18] LABS: ALT 36 U/L (21-72); AST 17 U/L (17-59); Albumin 4.3 g/dL (3.5-5.0); Alkaline Phosphatase 100 U/L (38-126); Anion Gap 12 mmol/L; Blood Urea Nitrogen 14 mg/dL (9-20); Calcium 9.5 mg/dL (8.4-10.2); Carbon Dioxide 29 mmol/L (22-30); Chloride 103 mmol/L (98-107); Cholesterol 211 mg/dL (<200); Glucose 100 mg/dL (74-99); HDL Cholesterol 51 mg/dL (40-60); LDL Cholesterol,Calculated 143 mg/dL (0-99); Potassium 4.5 mmol/L (3.5-5.1); Sodium 144 mmol/L (137-145); Total Bilirubin 0.4 mg/dL (0.2-1.3); Total Protein 6.9 g/dL (6.3-8.2); Triglycerides 85 mg/dL (<150)
[2017-12-22 15:48] LABS: Prostate Specific Antigen 1.75 ng/mL (0.00-4.00)
[2017-12-23 13:23] LABS: Alt. alternata IgE Class CLASS 0; Alternaria alternata IgE <0.35 kU/L (<0.35); Asperg. fumagatus IgE <0.35 kU/L (<0.35); Asperg. fumagatus IgE Class CLASS 0; Bermuda Grass IgE <0.35 kU/L (<0.35); Birch(Com.Silvr) IgE <0.35 kU/L (<0.35); Birch(Com.Silvr) IgE Class CLASS 0; Cat Epith & Dander IgE <0.35 kU/L (<0.35); Cat Epith & Dander IgE Class CLASS 0; Clad herbarum IgE <0.35 kU/L (<0.35); Cockroach IgE <0.35 kU/L (<0.35); Cottonwood IgE <0.35 kU/L (<0.35); Dermato. Pteronyssinus IgE <0.35 kU/L (<0.35); Dermato. farinae IgE <0.35 kU/L (<0.35); Dermato. farinae IgE Class CLASS 0; Dog Dander IgE <0.35 kU/L (<0.35); Elm IgE <0.35 kU/L (<0.35); Maple (Box Elder) IgE <0.35 kU/L (<0.35); Maple (Box Elder) IgE Class CLASS 0; Mountain Cedar IgE <0.35 kU/L (<0.35); Mountain Cedar IgE Class CLASS 0; Mouse Urine IgE Class CLASS 0; Nettle IgE <0.35 kU/L (<0.35); Nettle IgE Class CLASS 0; Oak IgE <0.35 kU/L (<0.35); Penicillium notatum IgE Class CLASS 0; Rough Marshelder IgE <0.35 kU/L (<0.35); Rough Marshelder IgE Class CLASS 0; Timothy Grass IgE <0.35 kU/L (<0.35); White Ash IgE Class CLASS 0
== END | disposition home or self-care (01) ==
LOC: LABWHC1 14:23
PROVIDERS: ATTEND Family Medicine
DX: E03.9 Hypothyroidism, unspecified (principal)
CPT/HCPCS: 36415; 80053; 80061; 82785; 84153; 84443; 85025; 86003

== ENCOUNTER 2017-12-24 19:59 | Inpatient (IN) | payer MEDICARE, OTHER ==
[2017-12-24] MEDS ORDERED: SODIUM CHLORIDE 0.9% 1,000 ML IV STA (20:39)
[2017-12-24] MEDS ORDERED: ASPIRIN 81 MG PO STA (20:39)
[2017-12-24] MEDS ORDERED: NITROGLYCERIN OINT 1 INCH/GM PACKET TOPICAL STA (20:39)
[2017-12-24 20:46] LABS: Basophils # (A) 0.1 k/uL (0-0.2); Basophils % (A) 1 %; Eosinophils # (A) 0.2 k/uL (0-0.7); Eosinophils % (A) 2 %; HCT 43.9 % (39.0-53.0); HGB 14.7 gm/dL (13.0-17.5); Lymphocytes # (A) 2.3 k/uL (1.0-4.8); Lymphocytes % (A) 29 %; MCH 30.2 pg (25.0-35.0); MCHC 33.5 g/dL (31.0-37.0); MCV 90.2 fL (80.0-100.0); Mean Platelet Volume 6.8; Monocytes # (A) 0.5 k/uL (0-1.0); Monocytes % (A) 6 %; Neutrophils % (A) 61 %; Platelet Count 290 k/uL (150-450); RBC 4.86 m/uL (4.30-5.90); RDW 13.6 % (11.5-15.5); WBC 8.2 k/uL (3.8-10.6)
[2017-12-24 20:55] LABS: ALT 27 U/L (21-72); AST 17 U/L (17-59); Albumin 4.3 g/dL (3.5-5.0); Alkaline Phosphatase 99 U/L (38-126); Anion Gap 16 mmol/L; Blood Urea Nitrogen 17 mg/dL (9-20); Calcium 9.5 mg/dL (8.4-10.2); Carbon Dioxide 21 mmol/L (22-30); Chloride 107 mmol/L (98-107); Creatine Kinase 51 U/L (55-170); Glucose 108 mg/dL (74-99); Magnesium 1.9 mg/dL (1.6-2.3); Potassium 3.6 mmol/L (3.5-5.1); Sodium 144 mmol/L (137-145); Total Bilirubin 0.4 mg/dL (0.2-1.3)
[2017-12-24 21:00] LABS: INR 1.1 (<1.2); Prothrombin Time 10.3 sec (9.0-12.0)
--- NOTE | 2017-12-24 21:04 | XR ---
EXAMINATION TYPE: XR chest 2V DATE OF EXAM: 12/24/2017 COMPARISON: Chest x-ray October 17, 2017 HISTORY: Chest pain. TECHNIQUE: Frontal and lateral views of the chest are obtained. FINDINGS: Somewhat low lung volumes are redemonstrated. There is no focal air space opacity, pleural effusion, or pneumothorax seen. The cardiac silhouette size is within normal limits. Pointed appear ance left heart border is unchanged from prior study. The osseous structures are intact. IMPRESSION: No suspicious acute cardiopulmonary process. No significant change from prior chest x-ra y.
[2017-12-24 21:07] LABS: Creatine Kinase MB 0.2 ng/mL (0.0-2.4); Troponin I <0.012 ng/mL (0.000-0.034)
[2017-12-24] MEDS ORDERED: MORPHINE SULFATE 4 MG/ML SYRINGE IVP PRN (22:13)
[2017-12-24] MEDS ORDERED: NITROGLYCERIN SL TABS 0.4 MG TAB SUBLINGUAL PRN (22:13)
--- NOTE | 2017-12-24 22:13 | ED ---
Chest Pain HPI - General Chief Complaint: Chest Pain Stated Complaint: chest pain Time Seen by Provider: 12/24/17 20:18 Source: patient Mode of arrival: ambulatory Limitations: no limitations - History of Present Illness Initial Comments: 57 years old male was accompanying his to the ER, he developed the chest pain which lasted about down about a minute and then it resolved he has been seeing cardiology in his primary care doctor he had quite a bit of extensive blood work done which included echo cardiogram stress test Cardiolite stress test he gave me all the detail and now be seen Dr. Chavez. He had a chest pain during the chest pain he got dizzy he was short winded he developed diaphoresis but now chest pain has resolved no headache now no chest pain or shortness of breath no symptoms of TIA or CVA, patient admitted that he has a significant family history of heart disease his dad here exactly had a myocardial infarction at the age of 55 and he at age of 66 - Related Data Previous Rx's Medication Instructions Recorded LORazepam [Ativan] 0.5 mg PO TID #45 tab 08/22/17 Levothyroxine Sodium [Synthroid] 50 mcg PO DAILY@0630 #30 tab 08/22/17 Metoprolol Tartrate [Lopressor] 25 mg PO BID #60 tab 08/22/17 Levothyroxine Sodium [Synthroid] 75 mcg PO DAILY #20 tab 10/17/17 Allergies Allergy/AdvReac Type Severity Reaction Status Date / Time No Known Allergies Allergy Verified 12/24/17 20:05 Review of Systems ROS Statement: Those systems with pertinent positive or pertinent negative responses have been documented in the HPI. ROS Other: All systems not noted in ROS Statement are negative. EKG Findings - EKG Comments: EKG Findings:: EKG is normal sinus rhythm ventricular rate is 100 ND interval is 136 QRS duration is 106 QT/QTC 348/448, devious this EKG does not reveal any ST elevation or ST depression, this EKG EKG was compared with old EKG old EKG this was from my September 2017, no obvious changes noticed Past Medical History Past Medical History: Chest Pain / Angina, GERD/Reflux, Sleep Apnea/CPAP/BIPAP, Thyroid Disorder Additional Past Medical History / Comment(s): cataract, History of Any Multi-Drug Resistant Organisms: MRSA Date of last positivie culture/infection: unk MDRO Source:: butt Additional Past Surgical History / Comment(s): sleep apnea surgery, Past Anesthesia/Blood Transfusion Reactions: No Reported Reaction Past Psychological History: Depression Smoking Status: Former smoker Past Alcohol Use History: Occasional Past Drug Use History: Marijuana - Past Family History Sister(s) Family Medical History: Cancer Additional Family Medical History / Comment(s): depression, breast CA Father Additional Family Medical History / Comment(s): blood clot Mother Family Medical History: Cancer Additional Family Medical History / Comment(s): pancreatic cancer General Exam - General Exam Comments Initial Comments: General: The patient is awake and alert, in no distress, and does not appear acutely ill. Skin: Skin is warm and dry and no rashes or lesions are noted. Eye: Pupils are equal, round and reactive to light, extra-ocular movements are intact; there is normal conjunctiva bilaterally. Ears, nose, mouth and throat: There are moist mucous membranes and no oral lesions. Neck: The neck is supple, there is no tenderness or JVD. Cardiovascular: There is a regular rate and rhythm. No murmur, rub or gallop is appreciated. Respiratory: To auscultation bilateral, no wheezing no rhonchi no distress respiratory palm noticed Gastrointestinal: Soft, non-distended, non-tender abdomen without masses or organomegaly noted. There is no rebound or guarding present. Bowel sounds are unremarkable. Back: There is no tenderness to palpation in the midline. There is no obvious deformity. Musculoskeletal: Normal ROM, no tenderness, There is no pedal edema. There is no calf tenderness or swelling. No cords were appreciated. Neurological: CN II-XII intact, Cranial nerves III through XII are intact. There are no obvious motor or sensory deficits. Coordination appears grossly intact. Speech is normal. Psychiatric: Cooperative, appropriate mood & affect, normal judgment. Limitations: no limitations Course Vital Signs 12/24/17 20:02 Temperature 98.2 F Pulse Rate 102 H Respiratory 18 Rate Blood Pressure 152/90 O2 Sat by Pulse 98 Oximetry Is in was reassessed at 20/200, his troponin is EKG his chest x-ray CBC and compressive metabolic panel are all unremarkable considering that a Cardiolite stress test couldn't rule out any ischemic changes and no recurrent chest pain he be admitted for observation and will see cardiology tomorrow considering such a brief episode of chest pain, not to heparinize him and will do 3 sets of cardiac markers Disposition Clinical Impression: Chest pain Disposition: ADMITTED IP TO THIS HOSP Condition: Good Referrals: Juan Simms MD [Primary Care Provider] - 1-2 days
[2017-12-24] MEDS ORDERED: LORazepam 0.5 MG TAB PO PRN (23:07)
[2017-12-25 03:35] LABS: Cholesterol 163 mg/dL (<200); HDL Cholesterol 38 mg/dL (40-60); LDL Cholesterol,Calculated 111 mg/dL (0-99); Triglycerides 68 mg/dL (<150)
[2017-12-25 03:46] LABS: Creatine Kinase 37 U/L (55-170)
[2017-12-25 04:00] LABS: Creatine Kinase MB <0.2 ng/mL (0.0-2.4); Troponin I <0.012 ng/mL (0.000-0.034)
[2017-12-25] MEDS ORDERED: LEVOTHYROXINE 50 MCG TAB PO SCH (06:30)
[2017-12-25] MEDS ORDERED: LORazepam 0.5 MG TAB PO SCH (09:00)
[2017-12-25] MEDS ORDERED: ASPIRIN 325 MG TAB PO SCH ×2 (09:00→09:45)
[2017-12-25] MEDS ORDERED: LEVOTHYROXINE 75 MCG TAB PO SCH (09:00)
[2017-12-25] MEDS ORDERED: ATORVASTATIN 80 MG TAB PO STA (09:20)
[2017-12-25] MEDS ORDERED: ASPIRIN 325 MG TAB PO STA (09:20)
[2017-12-25] MEDS ORDERED: ALPRAZolam 0.5 MG TAB PO PRN (09:20)
[2017-12-25] MEDS ORDERED: ALPRAZolam 0.25 MG TAB PO PRN (09:20)
[2017-12-25] MEDS ORDERED: SODIUM CHLORIDE 0.9% 1,000 ML in EMPTY BAG 1 BAG IV ONE (09:20)
[2017-12-25] MEDS ORDERED: NITROGLYCERIN SL TABS 0.4 MG TAB SUBLINGUAL PRN (09:20)
[2017-12-25] MEDS: METOPROLOL TARTRATE 25 MG TAB PO SCH ×2 (09:26→21:01)
[2017-12-25] MEDS: LEVOTHYROXINE 100 MCG TAB PO SCH (09:26)
[2017-12-25 09:32] LABS: Creatine Kinase 39 U/L (55-170)
[2017-12-25 09:45] LABS: Creatine Kinase MB <0.2 ng/mL (0.0-2.4); Troponin I <0.012 ng/mL (0.000-0.034)
[2017-12-25] MEDS: ALPRAZolam 0.25 MG TAB PO SCH ×3 (11:17→23:32)
--- NOTE | 2017-12-25 11:37 | P.HPIM ---
History of Present Illness H&P Date: 12/25/17 Chief Complaint: Chest pain The patient is a 57-year-old white male well-known to me. He is been experienced chest pain off and on for the past several months. He had outpatient light stress test. Negative stress, the Cardiolite portion was indeterminate. This came as a result of a hospitalization 08/23/2017 for chest pain. Of note his girlfriend is here also for chest pain and admitted observation. Nitro paste has been discontinued, as it given him a headache. He is anxious about his upcoming procedure. Currently his chest pain free. He denies any shortness of breath, hematochezia, melena, nausea or vomiting. His father had his first heart attack at 55 and at 66. This weighs heavily on the patient. He has a rash of small bumps to the dorsums of both arms. He is unsure how long she is been present. They're nonpruritic. Review of Systems All systems: negative Past Medical History Past Medical History: Chest Pain / Angina, GERD/Reflux, Sleep Apnea/CPAP/BIPAP, Thyroid Disorder Additional Past Medical History / Comment(s): left eye cataract History of Any Multi-Drug Resistant Organisms: MRSA Date of last positivie culture/infection: 2012? MDRO Source:: butt Additional Past Surgical History / Comment(s): sleep apnea surgery Past Anesthesia/Blood Transfusion Reactions: No Reported Reaction Past Psychological History: Anxiety, Depression Smoking Status: Former smoker Past Alcohol Use History: Occasional Past Drug Use History: Marijuana - Past Family History Sister(s) Family Medical History: Cancer Additional Family Medical History / Comment(s): depression, breast CA Father Family Medical History: Myocardial Infarction (OR) Additional Family Medical History / Comment(s): blood clot. OR at 56 at 66 Mother Family Medical History: Cancer Additional Family Medical History / Comment(s): pancreatic cancer Medications and Allergies Home Medications Medication Instructions Recorded Confirmed Type ALPRAZolam [Xanax] 0.125 - 0.25 mg PO Q8HR PRN 12/24/17 12/25/17 History Levothyroxine Sodium [Synthroid] 100 mcg PO DAILY 12/24/17 12/25/17 History Aspirin EC [Ecotrin Low Dose] 81 mg PO DAILY 12/25/17 12/25/17 History Allergies Allergy/AdvReac Type Severity Reaction Status Date / Time No Known Allergies Allergy Verified 12/25/17 08:34 Physical Exam Vitals: Vital Signs Temp Pulse Pulse Resp BP BP Pulse Ox 12/25/17 08:00 97.9 F 66 18 107/62 94 L 12/25/17 04:00 97.7 F 73 16 115/65 94 L 12/25/17 03:31 61 16 12/25/17 00:00 79 16 12/24/17 23:04 98.5 F 91 16 134/85 95 12/24/17 22:09 97.8 F 93 16 125/82 98 12/24/17 20:02 98.2 F 102 H 18 152/90 98 Intake and Output 12/24/17 12/25/17 12/25/17 22:59 06:59 14:59 Other: Voiding Method Toilet Toilet # Voids 2 2 Weight 105.233 kg GENERAL: Well-appearing, well-nourished and anxious. He is slightly obese HEAD: Atraumatic, normocephalic. EYES: Pupils equal round and reactive to light, extraocular movements intact, sclera anicteric, conjunctiva are normal. ENT:nares patent, oropharynx clear without exudates. Moist mucous membranes. NECK: Normal range of motion, supple without lymphadenopathy or JVD, no thyromegaly LUNGS: Breath sounds clear to auscultation bilaterally and equal. No wheezes rales or rhonchi. HEART: Regular rate and rhythm without murmurs, rubs or gallops.S1S2 Normal ABDOMEN: Soft, nontender, normoactive bowel sounds. No guarding, no rebound. No masses appreciated. EXTREMITIES: Normal range of motion, no pitting or edema. No clubbing or cyanosis. NEUROLOGICAL: Cranial nerves II through XII grossly intact. Normal speech, normal gait. PSYCH: Normal mood, normal affect. SKIN: Warm, Dry, normal turgor, no rashes or lesions noted. Results CBC & Chem 7: 12/24/17 20:20 12/24/17 20:20 Labs: Abnormal Lab Results - Last 24 Hours (Table) 12/24/17 12/24/17 12/25/17 Range/Units 20:20 20:20 02:59 Carbon Dioxide 21 L (22-30) mmol/L Glucose 108 H (74-99) mg/dL Total Creatine Kinase 51 L 37 L (55-170) U/L LDL Cholesterol, Calc (0-99) mg/dL HDL Cholesterol (40-60) mg/dL 12/25/17 12/25/17 Range/Units 02:59 08:34 Carbon Dioxide (22-30) mmol/L Glucose (74-99) mg/dL Total Creatine Kinase 39 L (55-170) U/L LDL Cholesterol, Calc 111 H (0-99) mg/dL HDL Cholesterol 38 L (40-60) mg/dL Thrombosis Risk Factor Assmnt - Choose All That Apply Each Factor Represents 1 point: Age 41-60 years, Obesity (BMI >25) Thrombosis Risk Factor Assessment Total Risk Factor Score: 2 Thrombosis Risk Factor Assessment Level: Low Risk Assessment and Plan Plan: Chest pain with a history of abnormal Cardiolite portion of stress test: Cardiology consult it. They're planning a cardiac catheterization tomorrow. Patient will continue to be observed and on telemetry. Continue on aspirin atorvastatin, when necessary nitroglycerin and metoprolol Hypothyroidism: Continue levothyroxine Obstructive sleep apnea: Known is able to get his sleep CPAP from home. He is on telemetry, and is on 2 L of oxygen as needed. Anxiety: I will schedule his alprazolam to be given every 6 hours GI prophylaxis/GERD: Pepcid 20 mg daily DVT prophylaxis: Jobst stockings We will wait on his upcoming cardiac catheterization the morning. He will be reevaluated next 24 hours.
[2017-12-25] MEDS ORDERED: ENOXAPARIN 100 MG/ML SYRINGE SQ STA (14:25)
--- NOTE | 2017-12-25 14:42 | CONS ---
CONSULTATION This is a 57-year-old gentleman with a history of hypothyroidism and some anxiety disorder. He is disabled and does not actively work. Yesterday he brought his to the hospital because she complained of chest pain and while he was with her, he developed chest pain and some heaviness and pressure in the chest and was slightly tachycardic and therefore he was advised to go to the emergency room. After going to the ER, he complained to them that he had chest pressure, although it was brief and by the time they reached the emergency room. The discomfort was gone. He had a similar presentation in the fall of 2016 and he was seen by Dr. Chavez and was asked to come in for an office visit for followup, but he did not. However, he had a stress test in October and he walked for over 8 minutes at a heart rate of more than 85% without any EKG changes or chest pain. However, the nuclear scan raised the possibility of inferior wall reversible defect. Given the abnormal stress test and his chest pain symptoms, he has been hospitalized. Since hospitalization, he has not had any further chest pain, is actually comfortable and resting. His troponins are normal and EKG does not reveal any significant abnormalities. PAST MEDICAL HISTORY: 1. History of chest pain and under a abnormal stress test in October. Hospitalization with chest pain was in July. 2. Gastroesophageal reflux disease. 3. History of obstructive sleep apnea for which he had some surgery in the past, but now uses CPAP. 4. He has hypothyroidism on replacement therapy. ALLERGIES: None. MEDICATIONS: Ativan 0.5 mg b.i.d. p.r.n., Synthroid 50 mcg daily. He used to take metoprolol tartrate 25 mg b.i.d., but he has not been taking it on a regular basis. LABORATORY: Data revealed the troponins are unremarkable. There are no other significant abnormalities. His renal function is normal. EKG revealed sinus mechanism without acute changes. EXAMINATION: Blood pressure is 130/60, pulse rate is 64 per minute and regular. HEENT unremarkable. Fundus was not examined by me. NECK: Supple. No JVD. I do not hear a carotid bruit. There is no thyromegaly. Heart exam reveals S1, S2 heard normally without a rub murmur or gallop. Lungs are clear. ABDOMEN: Soft, nontender. Lower extremities reveal normal pulses. No edema. Central nervous system is normal. IMPRESSION: 1. Chest pain syndrome with abnormal stress test. Cannot exclude this being a CAD manifestation. 2. Abnormal stress test. 3. History of anxiety. 4. Hypothyroidism. RECOMMENDATION: I am recommending that we keep the patient in the hospital and we will proceed with coronary angiography tomorrow. The rationale for coronary angiography, risks, benefits, options were carefully explained to the patient. Dr. Chavez will perform the procedure. We will keep the patient n.p.o. after midnight. I will place him on a very small dose of a beta marisol at about 12.5 mg daily. Continue his aspirin and we will also give him some subcu heparin 5000 units q.12 hours. I discussed my thoughts in detail with the patient. Thank you very much for the consult. ALEXANDER / TA: [id number] /
[2017-12-25] MEDS: FAMOTIDINE 20 MG TAB PO SCH (14:51)
[2017-12-26] MEDS ORDERED: ATORVASTATIN 80 MG TAB PO ONE (06:00)
[2017-12-26] MEDS ORDERED: ASPIRIN 325 MG TAB PO ONE (06:00)
[2017-12-26] MEDS: ALPRAZolam 0.25 MG TAB PO SCH ×4 (06:03→18:23)
[2017-12-26] MEDS: LEVOTHYROXINE 100 MCG TAB PO SCH (06:03)
[2017-12-26] MEDS: METOPROLOL TARTRATE 25 MG TAB PO SCH (06:43)
[2017-12-26] MEDS: FAMOTIDINE 20 MG TAB PO SCH (06:43)
[2017-12-26 07:28] LABS: Anion Gap 14 mmol/L; Blood Urea Nitrogen 15 mg/dL (9-20); Calcium 9.3 mg/dL (8.4-10.2); Carbon Dioxide 23 mmol/L (22-30); Chloride 107 mmol/L (98-107); Glucose 101 mg/dL (74-99); Potassium 4.1 mmol/L (3.5-5.1); Sodium 144 mmol/L (137-145)
[2017-12-26 08:06] VITALS: RESP 18
[2017-12-26] MEDS ORDERED: HEPARIN SODIUM 1,000 UN/ML (10ML VL) ONE ×2 (12:40→13:08)
[2017-12-26] MEDS ORDERED: IV FLUID CONTINUATION 650 ML IV ONE (12:43)
[2017-12-26] MEDS ORDERED: VERAPAMIL 2.5 MG/ML 2 ML AMP ONE (12:45)
[2017-12-26] MEDS ORDERED: MIDAZOLAM 2 MG/2 ML VIAL ONE (12:52)
[2017-12-26] MEDS ORDERED: MIDAZOLAM 2 MG/2 ML VIAL IV ONE (13:05)
[2017-12-26] MEDS: VERAPAMIL SYRINGE (5 MG/10 ML) INTRAARTER ONE ×2 (13:08→13:18)
[2017-12-26] MEDS ORDERED: LIDOCAINE 2% INJ 20 MG/ML SQ ONE (13:08)
[2017-12-26] MEDS ORDERED: HEPARIN SODIUM 1,000 UN/ML (10ML VL) IV ONE (13:09)
[2017-12-26] MEDS ORDERED: IOHEXOL 350 MG/ML 125ML BOTTLE INJ ONE (13:20)
[2017-12-26] MEDS ORDERED: RX INFO: IV CONTRAST WAS GIVEN 1 EACH MISC MISCELLANE PRN (13:22)
[2017-12-26] MEDS ORDERED: SODIUM CHLORIDE 0.9% 1,000 ML IV SCH (13:30)
[2017-12-26 13:53] VITALS: TEMP 97.6
--- NOTE | 2017-12-26 14:46 | CC ---
CARDIAC CATHETERIZATION REPORT DATE OF SERVICE: 12/26/2017 PERFORMING PHYSICIAN: Norman Chavez MD, trade show coordinator. PROCEDURE PERFORMED: 1. Selective right and left coronary angiogram. 2. Left heart catheterization. INDICATION: This is a pleasant 57-year-old gentleman who presented to the hospital with chest discomfort, was concerning for angina. He was seen and evaluated by Dr. Caruso who recommended proceeding with a heart catheterization. APPROACH: Right radial artery. COMPLICATION: None. LEVEL OF SEDATION: Moderate with sedation length of 12 minutes. DESCRIPTION OF PROCEDURE: After obtaining informed consent, the patient was brought to cardiac hot plate plywood press laborer. The right radial artery was cannulated using micropuncture technique and a micropuncture wire passed easily. Then I placed a 6-Bulgarian sheath in the right radial artery. After that I gave the patient 2 mg of verapamil IA and 10,000 units of heparin IV. After that, I did selective right and left coronary angiogram using JR4 and JL35 catheters. Left heart catheterization was performed using the JR4 catheter which flipped into the LV and then I did pullback after that. The procedure was completed without any complication. SELECTIVE CORONARY ANGIOGRAM: 1. The right coronary artery is a large caliber vessel and is a dominant vessel. It is angiographically normal. It bifurcates distally into PDA and PLV branches, both are angiographically normal. 2. The left main is angiographically normal but is a short left main. It bifurcates into the left circumflex and left anterior descending artery. 3. Left circumflex is a large caliber vessel. It is a codominant vessel. The proximal circ is angiographically normal and gives rise into the first obtuse marginal branch which seems to be angiographically normal. 4. The mid circ is angiographically normal as well. Gives rise into second OM branch which seems to be angiographically normal and the left circumflex distally is angiographically normal and bifurcates into PDA and PLV branches both are normal. 5. The left anterior descending artery appeared to be angiographically normal. 6. HEMODYNAMICS: The left ventricular end-diastolic pressure was 12 mmHg and no gradient was seen across the aortic valve. CONCLUSION: 1. Normal coronary angiogram. 2. Short left main coronary system artery. 3. POST PROCEDURE MANAGEMENT: Medical treatment. MMODL / IJN: [id number] /
--- NOTE | 2017-12-26 14:46 | LTR ---
DATE OF SERVICE: 12/26/2017. Dear Juan: MrSarah Salas underwent a heart catheterization and that revealed normal coronaries. Thank you for allowing us to participate in his care and please do not hesitate to call if you have any questions or concerns. Sincerely, ALEXANDER / TA: [id number] /
[2017-12-26 16:22] VITALS: BP 116/64; PULSE 75
--- NOTE | 2017-12-26 17:11 | P.DS ---
Providers Date of admission: 12/26/17 09:59 Expected date of discharge: 12/26/17 Attending physician: Juan Simms Consults: 12/24/17 22:14 Consult Physician Urgent Consulting Provider: Yeni Mooney Consult Reason/Comments: Chest pain Do you want consulting provider notified?: Yes Primary care physician: Juan Simms [facility] Course: Patient has had multiple emergency room visits with chest pain This last visit demonstrated normal coronary enzymes, including normal troponins Patient was offered cardiac catheterization and elected to proceed Completely normal coronary arteries are noted General: [Patient awake, alert and oriented times 3. Patient in no acute distress.] HEENT: [PERRL. EOMI. No pharyngeal erythema or exudate.] Neck: [No adenopathy.] Cardiac: [Heart regular in rate and rhythm. No S3. No S4. No clicks, rubs. No murmur.] Lungs: [Clear to auscultation bilaterally.] Abdomen: [No mass. No organomegaly. Bowel sounds presnt and normoactive in all 4 quadrants.] Extremes: [No edema no cyanosis no claudication normal pulses] : [] Musculoskeletal: [No joint erythema, edema or tenderness.] Skin: [No rash.] Neurologic: [No lateralizing deficits. CN II - XII grossly intact.] Lymphatic: [No adenopathy.] Pertinent Studies: normal cardiac cath Patient Condition at Discharge: Good Plan - Discharge Summary New Discharge Prescriptions: No Action Levothyroxine Sodium [Synthroid] 100 mcg PO DAILY ALPRAZolam [Xanax] 0.125 - 0.25 mg PO Q8HR PRN PRN Reason: PANIC ATTACKS Aspirin EC [Ecotrin Low Dose] 81 mg PO DAILY Discharge Medication List ALPRAZolam [Xanax] 0.125 - 0.25 mg PO Q8HR PRN 12/24/17 [History] Levothyroxine Sodium [Synthroid] 100 mcg PO DAILY 12/24/17 [History] Aspirin EC [Ecotrin Low Dose] 81 mg PO DAILY 12/25/17 [History] Follow up Appointment(s)/Referral(s): Norman Chavez MD [STAFF PHYSICIAN] - 01/02/18 2:15 pm (Follow up in the office with Dr. Chavez for a Site Check as scheduled) Juan Simms MD [Primary Care Provider] - 1-2 days Patient Instructions/Handouts: *Surgery [facility] - After Heart Catheterization - Cane Flume Feeding Machine Operator Instructions Activity/Diet/Wound Care/Special Instructions: See Activity Restriction Instructions
[2017-12-27] MEDS ORDERED: ASPIRIN 81 MG PO SCH (09:00)
== END 2017-12-26 18:27 | disposition home or self-care (01) | DRG 287 ==
LOC: EC 19:59 → 3OBS 22:14 → OBSVTOIN 12-26 09:59
PROVIDERS: ADMIT Family Medicine; ATTEND Family Medicine
PROC: B2111ZZ Fluoroscopy of Multiple Coronary Arteries using Low Osmolar Contrast (ICD-10-PCS; 2017-12-26)
PROC: 4A023N7 Measurement of Cardiac Sampling and Pressure, Left Heart, Percutaneous Approach (ICD-10-PCS; principal; 2017-12-26 12:30)
DX: R07.9 Chest pain, unspecified (principal); E03.9 Hypothyroidism, unspecified; F32.9 Major depressive disorder, single episode, unspecified; F41.9 Anxiety disorder, unspecified; G47.33 Obstructive sleep apnea (adult) (pediatric); K21.9 Gastro-esophageal reflux disease without esophagitis; R21 Rash and other nonspecific skin eruption; R94.39 Abnormal result of other cardiovascular function study; Z87.891 Personal history of nicotine dependence; Z79.899 Other long term (current) drug therapy; Z86.14 Personal history of Methicillin resistant Staphylococcus aureus infection; Z82.49 Family history of ischemic heart disease and other diseases of the circulatory system
CPT/HCPCS: 36415; 71046; 80048; 80053; 80061; 82550; 82553; 83735; 84443; 84484; 85025; 85610; 85730; 93005; 93458; 96360; 96361; 99285

== ENCOUNTER 2018-01-14 05:54 | Emergency (ER) | payer MEDICARE ==
[2018-01-14 06:03] VITALS: BP 153/87; PULSE 98; TEMP 97.6
[2018-01-14] MEDS ORDERED: ONDANSETRON 4 MG/2 ML VIAL IVP STA (06:27)
--- NOTE | 2018-01-14 06:36 | ED ---
SOB HPI - General Source: patient, family Mode of arrival: ambulatory Limitations: no limitations - History of Present Illness MD Complaint: shortness of breath, chest pain, anxiety Onset/Timin -: hour(s) Severity: moderate Quality: dull Consistency: now resolved Improves With: nothing Worsens With: nothing Known History Of: other (Sleep apnea) Associated Symptoms: chest pain, other (anxiety) <Esau Lam - Last Filed: 01/14/18 06:31> <Sedrick Walters - Last Filed: 01/14/18 08:20> - General Chief Complaint: Shortness of Breath Stated Complaint: SOB/Post Heart Cath 2wks Time Seen by Provider: 01/14/18 06:19 - History of Present Illness Initial Comments: This patient is a 57-year-old man with history of sleep apnea who presents with complaint that he was sleeping approximately an hour ago when he woke with severe anxiety, shortness of breath, and chest pressure across his upper chest. Patient states he was using his BiPAP. He states that the pain has resolved, and his breathing is better now, though not back to baseline. He states what is bothering him most now is that he is feeling very nauseated. He denies accompanying abdominal pain. The patient does relate that yesterday in the evening he had eaten an eclair that he thought was old and may be bad. (Esau Lam) - Related Data Home Medications Medication Instructions Recorded Confirmed ALPRAZolam [Xanax] 0.125 - 0.25 mg PO Q8HR PRN 12/24/17 01/14/18 Levothyroxine Sodium [Synthroid] 100 mcg PO DAILY 12/24/17 01/14/18 Aspirin EC [Ecotrin Low Dose] 81 mg PO DAILY 12/25/17 01/14/18 Allergies Allergy/AdvReac Type Severity Reaction Status Date / Time No Known Allergies Allergy Verified 01/14/18 06:02 Review of Systems ROS Other: All systems not noted in ROS Statement are negative. Constitutional: Denies: fever, chills, weakness Respiratory: Reports: as per HPI, dyspnea. Denies: cough, wheezes, hemoptysis Cardiovascular: Reports: as per HPI, chest pain, palpitations. Denies: orthopnea, edema, syncope Gastrointestinal: Reports: nausea. Denies: abdominal pain, vomiting, diarrhea, melena, hematochezia Genitourinary: Denies: dysuria Skin: Denies: rash Neurological: Denies: headache, weakness, numbness Psychiatric: Reports: anxiety <Esau Lam - Last Filed: 01/14/18 06:31> ROS Other: All systems not noted in ROS Statement are negative. <Sedrick Walters - Last Filed: 01/14/18 08:20> ROS Statement: Those systems with pertinent positive or pertinent negative responses have been documented in the HPI. Past Medical History Past Medical History: Chest Pain / Angina, GERD/Reflux, Sleep Apnea/CPAP/BIPAP, Thyroid Disorder Additional Past Medical History / Comment(s): left eye cataract History of Any Multi-Drug Resistant Organisms: MRSA Date of last positivie culture/infection: 2012? MDRO Source:: butt Additional Past Surgical History / Comment(s): sleep apnea surgery Past Anesthesia/Blood Transfusion Reactions: No Reported Reaction Past Psychological History: Anxiety, Depression Smoking Status: Former smoker Past Alcohol Use History: Occasional Past Drug Use History: Marijuana - Past Family History Sister(s) Family Medical History: Cancer Additional Family Medical History / Comment(s): depression, breast CA Father Family Medical History: Myocardial Infarction ([place]) Additional Family Medical History / Comment(s): blood clot. [place] at 56 at 66 Mother Family Medical History: Cancer Additional Family Medical History / Comment(s): pancreatic cancer <Esau Lam - Last Filed: 01/14/18 06:31> General Exam Limitations: no limitations General appearance: alert, anxious, obese Head exam: Present: atraumatic, normocephalic Eye exam: Present: normal appearance. Absent: scleral icterus, conjunctival injection Neck exam: Present: normal inspection, full ROM Respiratory exam: Present: wheezes (Trace expiratory wheeze). Absent: respiratory distress, rales, rhonchi, stridor, accessory muscle use, decreased breath sounds, prolonged expiratory Cardiovascular Exam: Present: regular rate, normal rhythm, normal heart sounds. Absent: systolic murmur, diastolic murmur, rubs, gallop GI/Abdominal exam: Present: soft. Absent: distended, tenderness, guarding, rebound, mass Extremities exam: Present: normal inspection, normal capillary refill. Absent: pedal edema, calf tenderness Back exam: Present: normal inspection. Absent: CVA tenderness (R), CVA tenderness (L) Neurological exam: Present: alert Psychiatric exam: Present: anxious Skin exam: Present: warm, dry, intact, normal color. Absent: rash <CaroleEsua - Last Filed: 01/14/18 06:31> Vital Signs 01/14/18 01/14/18 05:58 06:44 Temperature 97.6 F Pulse Rate 98 Respiratory 20 24 Rate Blood Pressure 153/87 O2 Sat by Pulse 97 Oximetry Medical Decision Making - EKG Data -: EKG Interpreted by Hi EKG shows normal: sinus rhythm, axis (Left axis), intervals (Normal), ST-T waves (Normal) Rate: tachycardia (approximately 102 BPM) <Esau Lam - Last Filed: 01/14/18 06:31> - Lab Data Result diagrams: 01/14/18 06:16 01/14/18 06:16 - Radiology Data Radiology results: image reviewed (Chest x-ray shows no acute process) <Sedrick Walters - Last Filed: 01/14/18 08:20> - Medical Decision Making Patient reevaluated and resting comfortably in bed. Patient symptom free at this time. Patient states his discomfort earlier was only minimal. Patient admits he did feel very anxious. Patient admits that he does have similar symptoms associated with anxiety frequently. Female that accompanies him states this occurs very frequently. Case was discussed in detail with Dr. Stearns who is familiar with this patient and is comfortable with discharge. He states patient did have a negative heart catheterization within the past few weeks. He will follow up with patient on Tuesday. (Sedrick Walters) - Lab Data Lab Results 01/14/18 01/14/18 01/14/18 Range/Units 06:16 06:16 06:16 WBC 9.3 (3.8-10.6) k/uL RBC 5.35 (4.30-5.90) m/uL Hgb 16.3 (13.0-17.5) gm/dL Hct 47.0 (39.0-53.0) % MCV 87.9 (80.0-100.0) fL MCH 30.5 (25.0-35.0) pg MCHC 34.7 (31.0-37.0) g/dL RDW 13.2 (11.5-15.5) % Plt Count 284 (150-450) k/uL Neutrophils % 43 % Lymphocytes % 43 % Monocytes % 7 % Eosinophils % 3 % Basophils % 1 % Neutrophils # 4.0 (1.3-7.7) k/uL Lymphocytes # 4.0 (1.0-4.8) k/uL Monocytes # 0.7 (0-1.0) k/uL Eosinophils # 0.3 (0-0.7) k/uL Basophils # 0.1 (0-0.2) k/uL D-Dimer (<0.60) mg/L FEU Sodium 144 (137-145) mmol/L Potassium 3.9 (3.5-5.1) mmol/L Chloride 105 (98-107) mmol/L Carbon Dioxide 25 (22-30) mmol/L Anion Gap 14 mmol/L BUN 22 H (9-20) mg/dL Creatinine 1.00 (0.66-1.25) mg/dL Est GFR (CKD-EPI)AfAm >90 (>60 ml/min/1.73 sqM) Est GFR (CKD-EPI)NonAf 84 (>60 ml/min/1.73 sqM) Glucose 109 H (74-99) mg/dL Calcium 9.7 (8.4-10.2) mg/dL Total Bilirubin 0.2 (0.2-1.3) mg/dL AST 33 (17-59) U/L ALT 51 (21-72) U/L Alkaline Phosphatase 110 (38-126) U/L Total Creatine Kinase 27 L (55-170) U/L CK-MB (CK-2) <0.2 (0.0-2.4) ng/mL CK-MB (CK-2) Rel Index Troponin I <0.012 (0.000-0.034) ng/mL NT-Pro-B Natriuret Pep pg/mL Total Protein 7.1 (6.3-8.2) g/dL Albumin 4.5 (3.5-5.0) g/dL 01/14/18 01/14/18 Range/Units 06:16 06:16 WBC (3.8-10.6) k/uL RBC (4.30-5.90) m/uL Hgb (13.0-17.5) gm/dL Hct (39.0-53.0) % MCV (80.0-100.0) fL MCH (25.0-35.0) pg MCHC (31.0-37.0) g/dL RDW (11.5-15.5) % Plt Count (150-450) k/uL Neutrophils % % Lymphocytes % % Monocytes % % Eosinophils % % Basophils % % Neutrophils # (1.3-7.7) k/uL Lymphocytes # (1.0-4.8) k/uL Monocytes # (0-1.0) k/uL Eosinophils # (0-0.7) k/uL Basophils # (0-0.2) k/uL D-Dimer 0.32 (<0.60) mg/L FEU Sodium (137-145) mmol/L Potassium (3.5-5.1) mmol/L Chloride (98-107) mmol/L Carbon Dioxide (22-30) mmol/L Anion Gap mmol/L BUN (9-20) mg/dL Creatinine (0.66-1.25) mg/dL Est GFR (CKD-EPI)AfAm (>60 ml/min/1.73 sqM) Est GFR (CKD-EPI)NonAf (>60 ml/min/1.73 sqM) Glucose (74-99) mg/dL Calcium (8.4-10.2) mg/dL Total Bilirubin (0.2-1.3) mg/dL AST (17-59) U/L ALT (21-72) U/L Alkaline Phosphatase (38-126) U/L Total Creatine Kinase (55-170) U/L CK-MB (CK-2) (0.0-2.4) ng/mL CK-MB (CK-2) Rel Index Troponin I (0.000-0.034) ng/mL NT-Pro-B Natriuret Pep 44 pg/mL Total Protein (6.3-8.2) g/dL Albumin (3.5-5.0) g/dL Disposition <Esau Lam - Last Filed: 01/14/18 06:31> Time of Disposition: 08:20 <Sedrick Walters - Last Filed: 01/14/18 08:20> Clinical Impression: Dyspnea, Anxiety, Chest pain Disposition: HOME SELF-CARE Condition: Stable Instructions: Chest Pain (ED), Anxiety (ED), Dyspnea (ED) Additional Instructions: Please follow-up Tuesday with Dr. Stearns. Return for increased pain, shortness of breath, worsening or changing symptoms or other concerns. Referrals: Juan Simms MD [Primary Care Provider] - 1-2 days
[2018-01-14 06:45] VITALS: RESP 24
[2018-01-14 06:53] LABS: Basophils # (A) 0.1 k/uL (0-0.2); Basophils % (A) 1 %; Eosinophils # (A) 0.3 k/uL (0-0.7); Eosinophils % (A) 3 %; HGB 16.3 gm/dL (13.0-17.5); Lymphocytes % (A) 43 %; MCH 30.5 pg (25.0-35.0); MCHC 34.7 g/dL (31.0-37.0); MCV 87.9 fL (80.0-100.0); Mean Platelet Volume 6.6; Monocytes # (A) 0.7 k/uL (0-1.0); Monocytes % (A) 7 %; Neutrophils % (A) 43 %; Platelet Count 284 k/uL (150-450); RBC 5.35 m/uL (4.30-5.90); RDW 13.2 % (11.5-15.5); WBC 9.3 k/uL (3.8-10.6)
[2018-01-14 07:10] LABS: ALT 51 U/L (21-72); AST 33 U/L (17-59); Albumin 4.5 g/dL (3.5-5.0); Alkaline Phosphatase 110 U/L (38-126); Anion Gap 14 mmol/L; Blood Urea Nitrogen 22 mg/dL (9-20); Calcium 9.7 mg/dL (8.4-10.2); Carbon Dioxide 25 mmol/L (22-30); Chloride 105 mmol/L (98-107); Glucose 109 mg/dL (74-99); Potassium 3.9 mmol/L (3.5-5.1); Sodium 144 mmol/L (137-145); Total Bilirubin 0.2 mg/dL (0.2-1.3); Total Protein 7.1 g/dL (6.3-8.2)
[2018-01-14 07:19] LABS: Creatine Kinase 27 U/L (55-170)
--- NOTE | 2018-01-14 07:19 | XR ---
EXAM: XR Chest, 2 Views. CLINICAL HISTORY: Difficulty breathing TECHNIQUE: Frontal and lateral views of the chest. COMPARISON: FINDINGS: Lungs: Lung volumes are within normal limits. There is no evidence of airspace consolidation. No diffuse interstitial abnormality.. Pleural spaces: No significant pleural effusion. No pneumothorax. Heart: Cardiac silhouette is unchanged and within normal limits.. Mediastinum: No mediastinal widening or shift. Bones: Unremarkable. No acute fracture. IMPRESSION: No evidence of active cardiopulmonary abnormality..
[2018-01-14 07:32] LABS: Creatine Kinase MB <0.2 ng/mL (0.0-2.4); Troponin I <0.012 ng/mL (0.000-0.034)
[2018-01-14] MEDS ORDERED: LORazepam 2 MG/ML INJ IV STA (07:53)
[2018-01-14] MEDS ORDERED: METOCLOPRAMIDE 5 MG/ML 2 ML VIAL IVP STA (07:53)
== END 2018-01-14 08:31 | disposition home or self-care (01) ==
LOC: EC 05:54
DX: R07.9 Chest pain, unspecified (principal); R06.02 Shortness of breath; F41.9 Anxiety disorder, unspecified; E07.9 Disorder of thyroid, unspecified; G47.30 Sleep apnea, unspecified; Z99.89 Dependence on other enabling machines and devices; Z86.14 Personal history of Methicillin resistant Staphylococcus aureus infection; Z87.891 Personal history of nicotine dependence; Z79.82 Long term (current) use of aspirin; Z79.899 Other long term (current) drug therapy
CPT/HCPCS: 36415; 93005; 85379; 83880; 80053; 82550; 82553; 84484; 85025; 71046; 99285; 96374; 96375 ×2; J2060; J2765; J2405

== ENCOUNTER 2018-08-20 00:09 | Emergency (ER) | payer MEDICARE, OTHER ==
[2018-08-20] MEDS ORDERED: SODIUM CHLORIDE 0.9% 1,000 ML IV STA (00:50)
--- NOTE | 2018-08-20 01:19 | ED ---
Abdominal Pain HPI - General Chief Complaint: Abdominal Pain Stated Complaint: Vomiting Blood/Abdominal Pain Time Seen by Provider: 08/20/18 00:26 Source: patient Mode of arrival: wheelchair Limitations: no limitations - History of Present Illness Initial Comments: Nito is a 57-year-old male who presents to the emergency department today via private vehicle with multiple complaints. Patient reports that he's had intermittent abdominal pain and pressure for couple of weeks with pain radiating to his bilateral legs. Patient also reports nightly episodes of nausea and vomiting. Patient ports he has not sought care for this pain however this evening he came acutely nauseated, patient felt as though if he could vomit he would feel better so he reports that he put his fingers down his throat to gag himself and make himself vomit. Patient reports that upon vomiting he noticed there was some blood, bright red in nature with in his vomitus. Patient is never experienced this before suffering a quite concerning. Patient reports that he just doesn't feel well, he feels an uncomfortable pressure in his abdomen. He denies any difficulty with urinating or dysuria or hematuria. Patient also reports pain in his left hand, he has noted a contracture in his left fingers recently somewhere to his previous plantar fasciitis he experiences this foot. Patient reports this is been causing him discomfort. He has not been taking NSAIDs. Patient also reports intermittent chest pain throughout the week though none today. - Related Data Home Medications Medication Instructions Recorded Confirmed ALPRAZolam [Xanax] 0.125 - 0.25 mg PO Q8HR PRN 12/24/17 08/20/18 Levothyroxine Sodium [Synthroid] 100 mcg PO DAILY 12/24/17 08/20/18 Aspirin EC [Ecotrin Low Dose] 81 mg PO DAILY 12/25/17 08/20/18 buPROPion XL [Wellbutrin Xl] 150 mg PO DAILY 08/20/18 08/20/18 Allergies Allergy/AdvReac Type Severity Reaction Status Date / Time No Known Allergies Allergy Verified 08/20/18 03:22 Review of Systems ROS Statement: Those systems with pertinent positive or pertinent negative responses have been documented in the HPI. ROS Other: All systems not noted in ROS Statement are negative. Past Medical History Past Medical History: Chest Pain / Angina, GERD/Reflux, Sleep Apnea/CPAP/BIPAP, Thyroid Disorder Additional Past Medical History / Comment(s): left eye cataract History of Any Multi-Drug Resistant Organisms: MRSA Date of last positivie culture/infection: 2012? MDRO Source:: butt Additional Past Surgical History / Comment(s): sleep apnea surgery Past Anesthesia/Blood Transfusion Reactions: No Reported Reaction Past Psychological History: Anxiety, Depression Smoking Status: Former smoker Past Alcohol Use History: Occasional Past Drug Use History: Marijuana - Past Family History Sister(s) Family Medical History: Cancer Additional Family Medical History / Comment(s): depression, breast CA Father Family Medical History: Myocardial Infarction ([place]) Additional Family Medical History / Comment(s): blood clot. CT at 58 at 66 Mother Family Medical History: Cancer Additional Family Medical History / Comment(s): pancreatic cancer General Exam - General Exam Comments Initial Comments: Physical Exam GENERAL: Anxious appearing 57-year-old gentleman HENT: Normocephalic, Atraumatic. EYES: PERRL, EOMI PULMONARY: Unlabored respirations. No audible rales rhonchi or wheezing was noted. CARDIOVASCULAR: There is a regular rate and rhythm without any murmurs gallops or rubs. ABDOMEN: Soft and nontender with normal bowel sounds. No pulsatile mass, no abdominal bruit SKIN: Skin is clear with no lesions or rashes and otherwise unremarkable. : Deferred NEUROLOGIC: Patient is alert and oriented x3. Moving all extremities spontaneously MUSCULOSKELETAL: Normal extremities with adequate strength and full range of motion. No lower extremity swelling or edema. No calf tenderness. Left hand noted to have contractures consistent with pulmonary fasciitis PSYCHIATRIC: Very anxious Limitations: no limitations Limitations: no limitations Course Vital Signs 08/20/18 08/20/18 08/20/18 00:22 01:00 01:02 Temperature 98.2 F Pulse Rate 81 84 82 Respiratory 20 17 16 Rate Blood Pressure 121/84 145/90 135/86 O2 Sat by Pulse 95 95 97 Oximetry 08/20/18 08/20/18 02:00 03:30 Temperature 98.3 F Pulse Rate 86 69 Respiratory 18 18 Rate Blood Pressure 135/86 127/80 O2 Sat by Pulse 95 Oximetry Medical Decision Making - Medical Decision Making The patient was seen and evaluated, history was obtained from the patient as well as his at bedside patient with multiple complaints over the past couple of weeks Acutely today the patient became nauseated, forced himself to vomit and then noted streaking of blood in his vomit Broad-spectrum of labs and imaging were ordered Labs with no significant abnormalities EKG nonischemic CT scan with no acute findings Labs and imaging were discussed with the patient who expresses relief. Advised the patient to eat multiple small meals of the day to avoid upsetting his stomach. I discussed the importance of oral rehydration. Return parameters were discussed, all questions pertaining care were answered best my ability and patient was discharged home in stable condition. - Lab Data Result diagrams: 08/20/18 01:28 08/20/18 01:28 Lab Results 08/20/18 08/20/18 08/20/18 Range/Units 01:23 01:28 01:28 WBC 8.3 (3.8-10.6) k/uL RBC 4.82 (4.30-5.90) m/uL Hgb 14.4 (13.0-17.5) gm/dL Hct 43.9 (39.0-53.0) % MCV 91.1 (80.0-100.0) fL MCH 29.8 (25.0-35.0) pg MCHC 32.7 (31.0-37.0) g/dL RDW 13.6 (11.5-15.5) % Plt Count 252 (150-450) k/uL Neutrophils % 70 % Lymphocytes % 20 % Monocytes % 6 % Eosinophils % 1 % Basophils % 1 % Neutrophils # 5.8 (1.3-7.7) k/uL Lymphocytes # 1.7 (1.0-4.8) k/uL Monocytes # 0.5 (0-1.0) k/uL Eosinophils # 0.1 (0-0.7) k/uL Basophils # 0.1 (0-0.2) k/uL PT (9.0-12.0) sec INR (<1.2) APTT (22.0-30.0) sec Sodium (137-145) mmol/L Potassium (3.5-5.1) mmol/L Chloride (98-107) mmol/L Carbon Dioxide (22-30) mmol/L Anion Gap mmol/L BUN (9-20) mg/dL Creatinine (0.66-1.25) mg/dL Est GFR (CKD-EPI)AfAm (>60 ml/min/1.73 sqM) Est GFR (CKD-EPI)NonAf (>60 ml/min/1.73 sqM) Glucose (74-99) mg/dL Calcium (8.4-10.2) mg/dL Total Bilirubin (0.2-1.3) mg/dL AST (17-59) U/L ALT (21-72) U/L Alkaline Phosphatase (38-126) U/L Total Creatine Kinase 34 L (55-170) U/L CK-MB (CK-2) <0.2 (0.0-2.4) ng/mL CK-MB (CK-2) Rel Index Troponin I <0.012 (0.000-0.034) ng/mL Total Protein (6.3-8.2) g/dL Albumin (3.5-5.0) g/dL Lipase (23-300) U/L Urine Color Urine Appearance (Clear) Urine pH (5.0-8.0) Ur Specific [place] (1.001-1.035) Urine Protein (Negative) Urine Glucose (UA) (Negative) Urine Ketones (Negative) Urine Blood (Negative) Urine Nitrite (Negative) Urine Bilirubin (Negative) Urine Urobilinogen (<2.0) mg/dL Ur Leukocyte Esterase (Negative) Blood Type Blood Type Confirm O Positive Blood Type Recheck Antibody Screen Spec Expiration Date 08/20/18 08/20/18 08/20/18 Range/Units 01:28 01:28 01:28 WBC (3.8-10.6) k/uL RBC (4.30-5.90) m/uL Hgb (13.0-17.5) gm/dL Hct (39.0-53.0) % MCV (80.0-100.0) fL MCH (25.0-35.0) pg MCHC (31.0-37.0) g/dL RDW (11.5-15.5) % Plt Count (150-450) k/uL Neutrophils % % Lymphocytes % % Monocytes % % Eosinophils % % Basophils % % Neutrophils # (1.3-7.7) k/uL Lymphocytes # (1.0-4.8) k/uL Monocytes # (0-1.0) k/uL Eosinophils # (0-0.7) k/uL Basophils # (0-0.2) k/uL PT 10.1 (9.0-12.0) sec INR 1.0 (<1.2) APTT 23.6 (22.0-30.0) sec Sodium 143 (137-145) mmol/L Potassium 4.3 (3.5-5.1) mmol/L Chloride 110 H (98-107) mmol/L Carbon Dioxide 23 (22-30) mmol/L Anion Gap 10 mmol/L BUN 20 (9-20) mg/dL Creatinine 1.10 (0.66-1.25) mg/dL Est GFR (CKD-EPI)AfAm 87 (>60 ml/min/1.73 sqM) Est GFR (CKD-EPI)NonAf 75 (>60 ml/min/1.73 sqM) Glucose 106 H (74-99) mg/dL Calcium 9.4 (8.4-10.2) mg/dL Total Bilirubin 0.4 (0.2-1.3) mg/dL AST 19 (17-59) U/L ALT 41 (21-72) U/L Alkaline Phosphatase 84 (38-126) U/L Total Creatine Kinase (55-170) U/L CK-MB (CK-2) (0.0-2.4) ng/mL CK-MB (CK-2) Rel Index Troponin I (0.000-0.034) ng/mL Total Protein 6.9 (6.3-8.2) g/dL Albumin 4.3 (3.5-5.0) g/dL Lipase 107 (23-300) U/L Urine Color Urine Appearance (Clear) Urine pH (5.0-8.0) Ur Specific [place] (1.001-1.035) Urine Protein (Negative) Urine Glucose (UA) (Negative) Urine Ketones (Negative) Urine Blood (Negative) Urine Nitrite (Negative) Urine Bilirubin (Negative) Urine Urobilinogen (<2.0) mg/dL Ur Leukocyte Esterase (Negative) Blood Type O Positive Blood Type Confirm Blood Type Recheck CABO Indicated Antibody Screen NEGATIVE Spec Expiration Date 08/23/2018 - 232708/20/18 Range/Units 01:48 WBC (3.8-10.6) k/uL RBC (4.30-5.90) m/uL Hgb (13.0-17.5) gm/dL Hct (39.0-53.0) % MCV (80.0-100.0) fL MCH (25.0-35.0) pg MCHC (31.0-37.0) g/dL RDW (11.5-15.5) % Plt Count (150-450) k/uL Neutrophils % % Lymphocytes % % Monocytes % % Eosinophils % % Basophils % % Neutrophils # (1.3-7.7) k/uL Lymphocytes # (1.0-4.8) k/uL Monocytes # (0-1.0) k/uL Eosinophils # (0-0.7) k/uL Basophils # (0-0.2) k/uL PT (9.0-12.0) sec INR (<1.2) APTT (22.0-30.0) sec Sodium (137-145) mmol/L Potassium (3.5-5.1) mmol/L Chloride (98-107) mmol/L Carbon Dioxide (22-30) mmol/L Anion Gap mmol/L BUN (9-20) mg/dL Creatinine (0.66-1.25) mg/dL Est GFR (CKD-EPI)AfAm (>60 ml/min/1.73 sqM) Est GFR (CKD-EPI)NonAf (>60 ml/min/1.73 sqM) Glucose (74-99) mg/dL Calcium (8.4-10.2) mg/dL Total Bilirubin (0.2-1.3) mg/dL AST (17-59) U/L ALT (21-72) U/L Alkaline Phosphatase (38-126) U/L Total Creatine Kinase (55-170) U/L CK-MB (CK-2) (0.0-2.4) ng/mL CK-MB (CK-2) Rel Index Troponin I (0.000-0.034) ng/mL Total Protein (6.3-8.2) g/dL Albumin (3.5-5.0) g/dL Lipase (23-300) U/L Urine Color Yellow Urine Appearance Clear (Clear) Urine pH 5.5 (5.0-8.0) Ur Specific [place] 1.029 (1.001-1.035) Urine Protein Trace H (Negative) Urine Glucose (UA) Negative (Negative) Urine Ketones Trace H (Negative) Urine Blood Negative (Negative) Urine Nitrite Negative (Negative) Urine Bilirubin Negative (Negative) Urine Urobilinogen <2.0 (<2.0) mg/dL Ur Leukocyte Esterase Negative (Negative) Blood Type Blood Type Confirm Blood Type Recheck Antibody Screen Spec Expiration Date - EKG Data EKG Comments: EKG obtained at 1:55 AM, rate is 70, rhythm sinus, there is left axis, normal intervals, W[place] 112, QRS 106, QTC is 416. There are no acute ST elevations or depressions and no evidence of acute ischemia or infarction. Disposition Clinical Impression: Abdominal pain, Nausea Disposition: HOME SELF-CARE Condition: Good Instructions: Abdominal Pain (ED) Is patient prescribed a controlled substance at d/c from ED?: No Referrals: Juan Simms MD [Primary Care Provider] - 1-2 days Edwin Chong DO [Doctor of Osteopathic Medicine] - 1-2 days Dao Prather MD [STAFF PHYSICIAN] - 1-2 days Time of Disposition: 03:34
[2018-08-20 01:42] LABS: Basophils # (A) 0.1 k/uL (0-0.2); Basophils % (A) 1 %; Eosinophils # (A) 0.1 k/uL (0-0.7); Eosinophils % (A) 1 %; HCT 43.9 % (39.0-53.0); HGB 14.4 gm/dL (13.0-17.5); Lymphocytes # (A) 1.7 k/uL (1.0-4.8); Lymphocytes % (A) 20 %; MCH 29.8 pg (25.0-35.0); MCHC 32.7 g/dL (31.0-37.0); MCV 91.1 fL (80.0-100.0); Mean Platelet Volume 6.6; Monocytes # (A) 0.5 k/uL (0-1.0); Monocytes % (A) 6 %; Neutrophils # (A) 5.8 k/uL (1.3-7.7); Neutrophils % (A) 70 %; Platelet Count 252 k/uL (150-450); RBC 4.82 m/uL (4.30-5.90); RDW 13.6 % (11.5-15.5); WBC 8.3 k/uL (3.8-10.6)
[2018-08-20] MEDS ORDERED: ONDANSETRON 4 MG/2 ML VIAL IVP STA (01:49)
[2018-08-20 01:51] LABS: Albumin 4.3 g/dL (3.5-5.0); Calcium 9.4 mg/dL (8.4-10.2); Potassium 4.3 mmol/L (3.5-5.1); Total Bilirubin 0.4 mg/dL (0.2-1.3); Total Protein 6.9 g/dL (6.3-8.2)
[2018-08-20 01:54] LABS: Partial Thromboplastin Time 23.6 sec (22.0-30.0); Prothrombin Time 10.1 sec (9.0-12.0)
[2018-08-20 01:58] LABS: Appearance,Urine Clear (Clear); Bilirubin,Urine Negative (Negative); Blood,Urine Negative (Negative); Color,Urine Yellow; Glucose,Urine (UA) Negative (Negative); Ketones,Urine Trace (Negative); Leukocyte Esterase,Urine Negative (Negative); Nitrite,Urine Negative (Negative); PH, Urine 5.5 (5.0-8.0); Protein,Urine Trace (Negative); Specific Gravity,Urine 1.029 (1.001-1.035); Urobilinogen,Urine <2.0 mg/dL (<2.0)
[2018-08-20 02:06] LABS: Creatine Kinase 34 U/L (55-170)
--- NOTE | 2018-08-20 02:08 | XR ---
EXAMINATION TYPE: XR chest 2V DATE OF EXAM: 08/20/2018 COMPARISON: 01/14/2018 HISTORY: Chest pain nausea TECHNIQUE: Frontal and lateral views of the chest are obtained. FINDINGS: There is no heart failure nor confluent pneumonic infiltrate. Costophrenic angles are beth r. There are chest leads. Bony thorax is intact. IMPRESSION: No active cardiopulmonary disease. No change.
[2018-08-20 02:17] LABS: Creatine Kinase MB <0.2 ng/mL (0.0-2.4); Troponin I <0.012 ng/mL (0.000-0.034)
--- NOTE | 2018-08-20 02:44 | CT ---
EXAMINATION TYPE: CT abdomen pelvis w con DATE OF EXAM: 08/20/2018 COMPARISON: None HISTORY: vomiting blood, nausea, pain CT DLP: 1326.50 mGycm Automated exposure control for dose reduction was used. TECHNIQUE: Helical acquisition of images was performed from the lung bases through the pelvis. CONTRAST: Performed without Oral Contrast and with IV Contrast, patient injected with 100 mL of Isovue 300. FINDINGS: Lung bases are clear. There is no pleural effusion. Heart size is normal. There is no pericardial eff usion. Stomach appears normal. Liver spleen pancreas gallbladder appear normal. Bile ducts are not dilated. There is no adrenal mass. Kidneys show satisfactory contrast opacification. There is no hydronephrosi s. Ureters are not dilated. Appendix appears normal. Bladder distends smoothly. There is no free fluid in the pelvis. There are a few colonic diverticula. There is no evidence of diverticulitis. I see no intestinal wall thickening. There are no dilated lo ops. There is no evidence of free air. There is no ascites. There is no mesenteric adenopathy or hillary a. There is no retroperitoneal adenopathy. There is no inguinal hernia. Lumbar spine appears intact. Bony pelvis appears intact. There is no billy dence of abdominal hernia. Abdominal soft tissues are unremarkable. IMPRESSION: NEGATIVE CT SCAN OF THE ABDOMEN AND PELVIS. I DO NOT SEE A CAUSE FOR ABDOMINAL PAIN. MINIMAL COLONIC DIVERTICULOSIS.
[2018-08-20 03:03] VITALS: RESP 18
[2018-08-20 03:33] VITALS: BP 127/80; PULSE 69; TEMP 98.3
== END 2018-08-20 03:40 | disposition home or self-care (01) ==
LOC: EC 00:09
DX: R10.9 Unspecified abdominal pain (principal); K92.0 Hematemesis; M62.442 Contracture of muscle, left hand; M79.604 Pain in right leg; M79.605 Pain in left leg; R07.9 Chest pain, unspecified; E07.9 Disorder of thyroid, unspecified; G47.30 Sleep apnea, unspecified; F32.9 Major depressive disorder, single episode, unspecified; F41.9 Anxiety disorder, unspecified; Z87.891 Personal history of nicotine dependence; Z79.82 Long term (current) use of aspirin; Z79.899 Other long term (current) drug therapy; Z86.14 Personal history of Methicillin resistant Staphylococcus aureus infection; Z99.89 Dependence on other enabling machines and devices; Z80.0 Family history of malignant neoplasm of digestive organs
CPT/HCPCS: 36415; 93005; 86900; 86901; 80053; 82550; 82553; 84484; 85025; 83690; 85610; 85730; 86850; 81003; 71046; 74177; 99284; 96374; 96361 ×2; J2405; Q9967

== ENCOUNTER 2022-07-26 17:37 | Emergency (ER) | payer MEDICARE ==
[2022-07-26 18:12] VITALS: TEMP 98.2
[2022-07-26] MEDS ORDERED: SODIUM CHLORIDE 0.9% 1,000 ML IV ONE (18:37)
--- NOTE | 2022-07-26 18:41 | ED ---
General Adult HPI - General Chief complaint: Chest Pain Stated complaint: chest pain Time Seen by Provider: 07/26/22 18:12 Source: patient, RN notes reviewed, old records reviewed Mode of arrival: ambulatory Limitations: no limitations - History of Present Illness Initial comments: 61-year-old male presents for evaluation of chest pain. Patient states this is associated with some lightheadedness although he states he did not eat today. He had a left jaw pain associated with his chest pain but also states he's dealing with a dental infection currently. He denies a prior history of CAD. This pain lasted about 30 seconds and was sharp in nature, substernal. No associated vomiting or diaphoresis. Pain has since resolved. - Related Data Home Medications Medication Instructions Recorded Confirmed ALPRAZolam [Xanax] 0.125 - 0.25 mg PO Q8HR PRN 12/24/17 08/20/18 Levothyroxine Sodium [Synthroid] 100 mcg PO DAILY 12/24/17 08/20/18 Aspirin EC [Ecotrin Low Dose] 81 mg PO DAILY 12/25/17 08/20/18 buPROPion XL [Wellbutrin Xl] 150 mg PO DAILY 08/20/18 08/20/18 Allergies Allergy/AdvReac Type Severity Reaction Status Date / Time No Known Allergies Allergy Verified 07/26/22 18:11 Review of Systems ROS Statement: Those systems with pertinent positive or pertinent negative responses have been documented in the HPI. ROS Other: All systems not noted in ROS Statement are negative. Past Medical History Past Medical History: Chest Pain / Angina, GERD/Reflux, Sleep Apnea/CPAP/BIPAP, Thyroid Disorder Additional Past Medical History / Comment(s): left eye cataract History of Any Multi-Drug Resistant Organisms: MRSA Date of last positivie culture/infection: 2012? MDRO Source:: butt Additional Past Surgical History / Comment(s): sleep apnea surgery Past Anesthesia/Blood Transfusion Reactions: No Reported Reaction Past Psychological History: Anxiety, Depression Past Alcohol Use History: Occasional Past Drug Use History: Marijuana - Past Family History Sister(s) Family Medical History: Cancer Additional Family Medical History / Comment(s): depression, breast CA Father Family Medical History: Myocardial Infarction (NE) Additional Family Medical History / Comment(s): blood clot. NE at 56 at 66 Mother Family Medical History: Cancer Additional Family Medical History / Comment(s): pancreatic cancer General Exam Limitations: no limitations General appearance: alert, in no apparent distress Head exam: Present: atraumatic, normocephalic Eye exam: Present: normal appearance, PERRL ENT exam: Present: mucous membranes dry Neck exam: Present: normal inspection. Absent: tenderness, meningismus Respiratory exam: Present: normal lung sounds bilaterally. Absent: respiratory distress, wheezes Cardiovascular Exam: Present: regular rate, normal rhythm GI/Abdominal exam: Present: soft. Absent: distended, tenderness, guarding Extremities exam: Present: normal inspection, normal capillary refill. Absent: pedal edema, joint swelling, calf tenderness Neurological exam: Present: alert, oriented X3, CN II-XII intact. Absent: motor sensory deficit Psychiatric exam: Present: normal affect, normal mood Skin exam: Present: warm, dry, intact. Absent: cyanosis, diaphoretic Course Vital Signs 07/26/22 18:09 Temperature 98.2 F Pulse Rate 84 Respiratory 18 Rate Blood Pressure 173/106 O2 Sat by Pulse 96 Oximetry EKG Findings - EKG Comments: EKG Findings:: Sinus rhythm rate of 88, VT interval 151, QRS duration 105, QTC [address] segment elevation. Medical Decision Making - Medical Decision Making 61-year-old male who had presented for an episode of chest pain. Episode lasted 30 seconds with no associated diaphoresis or vomiting. Patient has had jaw pain but does not believe this is related as he is currently dealing with a dental infection. His EKG is sinus without ST segment elevation. Chest x-ray is clear. Patient has normal CBC, normal CMP, negative initial troponin, negative d-dimer. He remains chest pain-free while in the emergency department. I had offered admission with serial chronic enzymes, telemetry, cardiology consultation over the patient preferred discharge but agreed to a second troponin while in the emergency department. This was obtained and was also negative. Patient reassured. He will follow-up with his primary care physician return parameters discussed at length. - Lab Data Result diagrams: 07/26/22 18:50 07/26/22 18:50 Lab Results 07/26/22 07/26/22 07/26/22 Range/Units 18:50 18:50 18:50 WBC 8.8 (3.8-10.6) k/uL RBC 4.68 (4.30-5.90) m/uL Hgb 14.4 (13.0-17.5) gm/dL Hct 42.2 (39.0-53.0) % MCV 90.1 (80.0-100.0) fL MCH 30.8 (25.0-35.0) pg MCHC 34.2 (31.0-37.0) g/dL RDW 13.7 (11.5-15.5) % Plt Count 212 (150-450) k/uL MPV 7.7 Neutrophils % 64 % Lymphocytes % 24 % Monocytes % 7 % Eosinophils % 2 % Basophils % 1 % Neutrophils # 5.6 (1.3-7.7) k/uL Lymphocytes # 2.1 (1.0-4.8) k/uL Monocytes # 0.6 (0-1.0) k/uL Eosinophils # 0.2 (0-0.7) k/uL Basophils # 0.1 (0-0.2) k/uL PT 10.1 (9.0-12.0) sec INR 0.9 (<1.2) APTT 22.1 (22.0-30.0) sec D-Dimer 0.23 (<0.60) mg/L FEU Sodium 141 (137-145) mmol/L Potassium 4.0 (3.5-5.1) mmol/L Chloride 108 H (98-107) mmol/L Carbon Dioxide 21 L (22-30) mmol/L Anion Gap 12 mmol/L BUN 16 (9-20) mg/dL Creatinine 0.85 (0.66-1.25) mg/dL Est GFR (CKD-EPI)AfAm >90 (>60 ml/min/1.73 sqM) Est GFR (CKD-EPI)NonAf >90 (>60 ml/min/1.73 sqM) Glucose 105 H (74-99) mg/dL Calcium 8.7 (8.4-10.2) mg/dL Magnesium 1.9 (1.6-2.3) mg/dL Total Bilirubin 0.5 (0.2-1.3) mg/dL AST 25 (17-59) U/L ALT 34 (4-49) U/L Alkaline Phosphatase 101 (38-126) U/L Troponin I (0.000-0.034) ng/mL NT-Pro-B Natriuret Pep pg/mL Total Protein 6.6 (6.3-8.2) g/dL Albumin 4.3 (3.5-5.0) g/dL Lipase 61 (23-300) U/L Serum Alcohol <10 mg/dL Coronavirus (PCR) (Not Detectd) 07/26/22 07/26/22 07/26/22 Range/Units 18:50 18:50 20:56 WBC (3.8-10.6) k/uL RBC (4.30-5.90) m/uL Hgb (13.0-17.5) gm/dL Hct (39.0-53.0) % MCV (80.0-100.0) fL MCH (25.0-35.0) pg MCHC (31.0-37.0) g/dL RDW (11.5-15.5) % Plt Count (150-450) k/uL MPV Neutrophils % % Lymphocytes % % Monocytes % % Eosinophils % % Basophils % % Neutrophils # (1.3-7.7) k/uL Lymphocytes # (1.0-4.8) k/uL Monocytes # (0-1.0) k/uL Eosinophils # (0-0.7) k/uL Basophils # (0-0.2) k/uL PT (9.0-12.0) sec INR (<1.2) APTT (22.0-30.0) sec D-Dimer (<0.60) mg/L FEU Sodium (137-145) mmol/L Potassium (3.5-5.1) mmol/L Chloride (98-107) mmol/L Carbon Dioxide (22-30) mmol/L Anion Gap mmol/L BUN (9-20) mg/dL Creatinine (0.66-1.25) mg/dL Est GFR (CKD-EPI)AfAm (>60 ml/min/1.73 sqM) Est GFR (CKD-EPI)NonAf (>60 ml/min/1.73 sqM) Glucose (74-99) mg/dL Calcium (8.4-10.2) mg/dL Magnesium (1.6-2.3) mg/dL Total Bilirubin (0.2-1.3) mg/dL AST (17-59) U/L ALT (4-49) U/L Alkaline Phosphatase (38-126) U/L Troponin I <0.012 <0.012 (0.000-0.034) ng/mL NT-Pro-B Natriuret Pep 44 pg/mL Total Protein (6.3-8.2) g/dL Albumin (3.5-5.0) g/dL Lipase (23-300) U/L Serum Alcohol mg/dL Coronavirus (PCR) (Not Detectd) 07/26/22 Range/Units 21:15 WBC (3.8-10.6) k/uL RBC (4.30-5.90) m/uL Hgb (13.0-17.5) gm/dL Hct (39.0-53.0) % MCV (80.0-100.0) fL MCH (25.0-35.0) pg MCHC (31.0-37.0) g/dL RDW (11.5-15.5) % Plt Count (150-450) k/uL MPV Neutrophils % % Lymphocytes % % Monocytes % % Eosinophils % % Basophils % % Neutrophils # (1.3-7.7) k/uL Lymphocytes # (1.0-4.8) k/uL Monocytes # (0-1.0) k/uL Eosinophils # (0-0.7) k/uL Basophils # (0-0.2) k/uL PT (9.0-12.0) sec INR (<1.2) APTT (22.0-30.0) sec D-Dimer (<0.60) mg/L FEU Sodium (137-145) mmol/L Potassium (3.5-5.1) mmol/L Chloride (98-107) mmol/L Carbon Dioxide (22-30) mmol/L Anion Gap mmol/L BUN (9-20) mg/dL Creatinine (0.66-1.25) mg/dL Est GFR (CKD-EPI)AfAm (>60 ml/min/1.73 sqM) Est GFR (CKD-EPI)NonAf (>60 ml/min/1.73 sqM) Glucose (74-99) mg/dL Calcium (8.4-10.2) mg/dL Magnesium (1.6-2.3) mg/dL Total Bilirubin (0.2-1.3) mg/dL AST (17-59) U/L ALT (4-49) U/L Alkaline Phosphatase (38-126) U/L Troponin I (0.000-0.034) ng/mL NT-Pro-B Natriuret Pep pg/mL Total Protein (6.3-8.2) g/dL Albumin (3.5-5.0) g/dL Lipase (23-300) U/L Serum Alcohol mg/dL Coronavirus (PCR) Not Detected (Not Detectd) Disposition Clinical Impression: Chest pain Disposition: HOME SELF-CARE Condition: Good Instructions (If sedation given, give patient instructions): Chest Pain (ED) Is patient prescribed a controlled substance at d/c from ED?: No Referrals: Juan Simms MD [Primary Care Provider] - 1-2 days Time of Disposition: 21:57
--- NOTE | 2022-07-26 18:44 | XR ---
EXAMINATION TYPE: XR chest 2V DATE OF EXAM: 07/26/2022 COMPARISON: 08/20/2018 HISTORY: Chest pain TECHNIQUE: 2 view FINDINGS: Heart is normal. Lungs are clear of infiltrate. No heart failure. There are no hilar masses . The bony thorax is intact IMPRESSION: No active cardiopulmonary disease. Normal heart. No change.
[2022-07-26 19:01] LABS: Basophils # (A) 0.1 k/uL (0-0.2); Basophils % (A) 1 %; Eosinophils # (A) 0.2 k/uL (0-0.7); Eosinophils % (A) 2 %; HCT 42.2 % (39.0-53.0); HGB 14.4 gm/dL (13.0-17.5); Lymphocytes # (A) 2.1 k/uL (1.0-4.8); Lymphocytes % (A) 24 %; MCH 30.8 pg (25.0-35.0); MCHC 34.2 g/dL (31.0-37.0); MCV 90.1 fL (80.0-100.0); Mean Platelet Volume 7.7; Monocytes # (A) 0.6 k/uL (0-1.0); Monocytes % (A) 7 %; Neutrophils # (A) 5.6 k/uL (1.3-7.7); Neutrophils % (A) 64 %; Platelet Count 212 k/uL (150-450); RBC 4.68 m/uL (4.30-5.90); RDW 13.7 % (11.5-15.5); WBC 8.8 k/uL (3.8-10.6)
[2022-07-26 19:13] LABS: ALT 34 U/L (4-49); AST 25 U/L (17-59); African American GFR (CKD) >90 (>60 ml/min/1.73 sqM); Albumin 4.3 g/dL (3.5-5.0); Alcohol <10 mg/dL; Alkaline Phosphatase 101 U/L (38-126); Anion Gap 12 mmol/L; Blood Urea Nitrogen 16 mg/dL (9-20); Calcium 8.7 mg/dL (8.4-10.2); Carbon Dioxide 21 mmol/L (22-30); Chloride 108 mmol/L (98-107); Glucose 105 mg/dL (74-99); Lipase 61 U/L (23-300); Magnesium 1.9 mg/dL (1.6-2.3); Non-African American GFR(CKD) >90 (>60 ml/min/1.73 sqM); Sodium 141 mmol/L (137-145); Total Bilirubin 0.5 mg/dL (0.2-1.3); Total Protein 6.6 g/dL (6.3-8.2)
[2022-07-26 19:15] LABS: INR 0.9 (<1.2); Partial Thromboplastin Time 22.1 sec (22.0-30.0); Prothrombin Time 10.1 sec (9.0-12.0)
[2022-07-26 22:17] VITALS: RESP 15
[2022-07-26 22:27] VITALS: BP 116/64; PULSE 71
== END 2022-07-26 22:27 | disposition home or self-care (01) ==
LOC: EC 17:37
DX: R07.9 Chest pain, unspecified (principal); E07.9 Disorder of thyroid, unspecified; Z79.890 Hormone replacement therapy; Z20.822 Contact with and (suspected) exposure to COVID-19
CPT/HCPCS: 99285; 36415; 93005; 85379; 83880; 80053; 83690; 83735; 84484; 85025; 85610; 85730; 87635; 71046; 96360; G0480; 80320